=== PATIENT | male | born 1945 | race Asian ===

== ENCOUNTER → 2017-03-02 | Outpatient (CLI) | payer MEDICARE, BC | LOC: RAD 13:49 | PROVIDERS: ATTEND Family Medicine | DX: G45.9 Transient cerebral ischemic attack, unspecified (principal) | CPT/HCPCS: 70450 ==

== ENCOUNTER 2017-03-09 14:18 | Inpatient (IN) | payer MEDICARE, BC ==
[2017-03-09] MEDS ORDERED: ACETAMINOPHEN 325 MG TABLET PO PRN (14:49)
[2017-03-09] MEDS ORDERED: DEXTROSE 40% GEL 15 GM TUBE PO PRN ×2 (15:23)
[2017-03-09] MEDS ORDERED: DEXTROSE 50%-WATER 25 GM/50 ML DISP.SYRIN IV PRN ×2 (15:23)
[2017-03-09] MEDS ORDERED: ONDANSETRON HCL INJ/PF 4 MG/2 ML SDV IV PRN (15:23)
[2017-03-09] MEDS ORDERED: DICYCLOMINE HCL 10 MG CAPSULE PO PRN (15:23)
[2017-03-09] MEDS ORDERED: GLUCAGON,HUMAN RECOMB 1 MG INJ IM PRN (15:23)
[2017-03-09] MEDS ORDERED: INSULIN LISPRO 100 UNIT/ML 3 ML VIAL SUBCUT PRN (15:23)
[2017-03-09 15:58] LABS: ABSOLUTE EOSINOPHILS # (AUTO) 0.2 10^3/uL (0.0-0.6); ABSOLUTE LYMPHOCYTES (AUTO) 1.9 10^3/uL (0.5-4.7); ABSOLUTE MONOCYTES (AUTO) 0.6 10^3/uL (0.1-1.4); ABSOLUTE NEUT (AUTO) 4.4 10^3/uL (1.7-8.2); BASOPHILS % (AUTO) 0.6 % (0-2); EOSINOPHILS % (AUTO) 2.4 % (0-6); HEMATOCRIT 45.1 % (37.9-51.0); HEMOGLOBIN 15.4 g/dL (13.5-17.0); HGB HCT DIFFERENCE 1.1; LYMPHOCYTES % (AUTO) 26.2 % (13-45); MEAN CORPUSCULAR HEMOGLOBIN 30.7 pg (27.0-33.4); MEAN CORPUSCULAR HGB CONC 34.2 g/dL (32.0-36.0); MEAN CORPUSCULAR VOLUME 90 fl (80-97); MONOCYTES % (AUTO) 8.4 % (3-13); RED BLOOD COUNT 5.03 10^6/uL (4.35-5.55); RED CELL DISTRIBUTION WIDTH 13.1 % (11.5-14.0); SEGMENTED NEUTROPHILS % (AUTO) 62.4 % (42-78); WHITE BLOOD COUNT 7.1 10^3/uL (4.0-10.5)
[2017-03-09] MEDS: NORMAL SALINE 1000 ML 1,000 ML IV PRN (16:22)
[2017-03-09 16:30] LABS: ALANINE AMINOTRANSFERASE 17 U/L (21-72); ALBUMIN 4.1 g/dL (3.5-5.0); ALKALINE PHOSPHATASE 75 U/L (38-126); ANION GAP 15 (5-19); ASPARTATE AMINO TRANSFERASE 49 U/L (17-59); BILIRUBIN,TOTAL 0.6 mg/dL (0.2-1.3); BLOOD UREA NITROGEN 21 mg/dL (7-20); CALCIUM 9.5 mg/dL (8.4-10.2); CARBON DIOXIDE 28 mmol/L (22-30); CHLORIDE 102 mmol/L (98-107); CREATINE KINASE 32 U/L (55-170); CREATININE RESULT 0.77 mg/dL (0.52-1.25); GLUCOSE 100 mg/dL (75-110); POTASSIUM 4.5 mmol/L (3.6-5.0); SODIUM 145.2 mmol/L (137-145); TOTAL PROTEIN 6.7 g/dL (6.3-8.2)
[2017-03-09 16:34] LABS: BILIRUBIN,DIRECT 0.2 mg/dL (0.0-0.4)
--- NOTE | 2017-03-09 16:38 | PDOC H&P ---
History of Present Illness Admission Date/PCP: 03/09/17 14:18 TAVARES FAROOQ MD Patient complains of: Nausea, abdominal pain, dizziness and dehydration History of Present Illness: ARTURO ROUSSEAU is a 71 year old male presents from Dr. Frey, cardiology, with complaints of nausea, abdominal pain, dizziness and dehydration. Patient states his blood sugars have been high and low, he thinks contributed to his dehydration. States he is a type II diabetic who has had recent problems with hyperglycemia. He states he's had nausea and abdominal pain for the last 2 weeks. He has been drinking but not eating well. He states he's had a 40 pound weight loss over the last year which is unintentional. He denies any chest pain, dyspnea or shortness of breath. States he did fall over a week ago striking his head, he has CT of the head done at that time but continues to have some dizziness. He states most of his abdominal pain is in the epigastric area. He denies any change in bowels, any diarrhea or constipation. He denies any vomiting. He states he also feels weak and extremely dry in the mouth.. Past Medical History Cardiac Medical History: Reports: Hypertension Denies: Coronary Artery Disease, Myocardial Infarction Pulmonary Medical History: Reports: Chronic Obstructive Pulmonary Disease (COPD) Denies: Asthma, Bronchitis, Pneumonia EENT Medical History: Reports: None Neurological Medical History: Reports: None Denies: Seizures Endocrine Medical History: Reports: Diabetes Mellitus Type 2 Renal/ Medical History: Reports: None Malignancy Medical History: Reports: None GI Medical History: Reports: None Musculoskeltal Medical History: Reports: Arthritis, Other - chronic back and neck pain Skin Medical History: Reports: None Psychiatric Medical History: Reports: None Hematology: Reports: None Denies: Anemia Infectious Medical History: Reports: None Past Surgical History Past Surgical History: Reports: Other - lumbar spine and cervical spine Social History Information Source: Patient Lives with: Spouse/Significant other Smoking Status: Never Smoker Frequency of Alcohol Use: Occasional Hx Recreational Drug Use: No Hx Prescription Drug Abuse: No - Advance Directive Resuscitation Status: Full Code Surrogate healthcare decision maker:: Family History Family History: DM, Hypertension Parental Family History Reviewed: Yes Children Family History Reviewed: Yes Sibling(s) Family History Reviewed.: Yes Medication/Allergy Allergies/Adverse Reactions: No Known Allergies Allergy (Verified 08/16/14 11:38) Review of Systems Constitutional: PRESENT: anorexia, weakness, weight loss Eyes: ABSENT: visual disturbances Ears: ABSENT: hearing changes Cardiovascular: ABSENT: chest pain, dyspnea on exertion, edema, orthropnea, palpitations Respiratory: ABSENT: cough, hemoptysis Gastrointestinal: PRESENT: abdominal pain, nausea Genitourinary: ABSENT: dysuria, hematuria Musculoskeletal: ABSENT: joint swelling Integumentary: ABSENT: rash, wounds Neurological: ABSENT: abnormal gait, abnormal speech, confusion, dizziness, focal weakness, syncope Psychiatric: ABSENT: anxiety, depression, homidical ideation, suicidal ideation Endocrine: ABSENT: cold intolerance, heat intolerance, polydipsia, polyuria Hematologic/Lymphatic: ABSENT: easy bleeding, easy bruising Physical Exam Vital Signs: Temp Pulse Resp BP Pulse Ox 67 03/09/17 14:55 Intake & Output 03/08/17 03/09/17 03/10/17 06:59 06:59 06:59 Weight 50.6 kg General appearance: PRESENT: no acute distress, well-developed, well-nourished Head exam: PRESENT: atraumatic, normocephalic Eye exam: PRESENT: conjunctiva pink, EOMI, PERRLA. ABSENT: scleral icterus Ear exam: PRESENT: normal external ear exam Mouth exam: PRESENT: moist, tongue midline Neck exam: ABSENT: carotid bruit, JVD, lymphadenopathy, thyromegaly Respiratory exam: PRESENT: clear to auscultation kristin. ABSENT: rales, rhonchi, wheezes Cardiovascular exam: PRESENT: RRR. ABSENT: diastolic murmur, rubs, systolic murmur Vascular exam: PRESENT: normal capillary refill GI/Abdominal exam: PRESENT: normal bowel sounds, soft, other - mild epigastric tenderness to palpation. ABSENT: distended, guarding, mass, organolmegaly, rebound, tenderness Rectal exam: PRESENT: deferred Extremities exam: PRESENT: full ROM. ABSENT: calf tenderness, clubbing, pedal edema Musculoskeletal exam: PRESENT: ambulatory Neurological exam: PRESENT: alert, awake, oriented to person, oriented to place , oriented to time, oriented to situation, CN II-XII grossly intact. ABSENT: motor sensory deficit Psychiatric exam: PRESENT: appropriate affect, normal mood. ABSENT: homicidal ideation, suicidal ideation Skin exam: PRESENT: dry, intact, warm. ABSENT: cyanosis, rash Results Laboratory Results: 03/09/17 15:50 03/09/17 15:50 WBC 7.1 RBC 5.03 Hgb 15.4 Hct 45.1 MCV 90 MCH 30.7 MCHC 34.2 RDW 13.1 Plt Count 244 Seg Neutrophils % 62.4 Lymphocytes % 26.2 Monocytes % 8.4 Eosinophils % 2.4 Basophils % 0.6 Absolute Neutrophils 4.4 Absolute Lymphocytes 1.9 Absolute Monocytes 0.6 Absolute Eosinophils 0.2 Absolute Basophils 0.0 Assessment & Plan - Diagnosis (1) Abdominal pain Qualifiers: Abdominal location: epigastric Qualified Code(s): R10.13 - Epigastric pain Is this a current diagnosis for this admission?: YesPlan: IV Pepcid and Bentyl when necessary. (2) Nausea Is this a current diagnosis for this admission?: YesPlan: We'll give when necessary Zofran. Will hydrate with IV fluids and clear liquids initially until nausea has resolved. (3) Dizziness Is this a current diagnosis for this admission?: YesPlan: Patient had negative CT of the head after falling last week Dr. Farooq as is for MRI of the head patient does have titanium implant in his spine. (4) Essential hypertension Is this a current diagnosis for this admission?: YesPlan: Continue patient's home medications is presently normotensive. (5) HLD (hyperlipidemia) Is this a current diagnosis for this admission?: YesPlan: Continue statin. (6) Spinal stenosis Qualifiers: Spinal region: lumbosacral Qualified Code(s): M48.07 - Spinal stenosis, lumbosacral region Is this a current diagnosis for this admission?: YesPlan: Continue home medications. - Time Time Spent: 50 to 70 Minutes Critical Time spent with patient: 25-34 minutes Medications reviewed and adjusted accordingly: Yes
[2017-03-09] MEDS ORDERED: PANTOPRAZOLE SODIUM 40 MG VIAL IV SCH (22:00)
--- NOTE | 2017-03-09 22:22 | EKG REPORT ---
SEVERITY:- ABNORMAL ECG - SINUS RHYTHM MULTIPLE VENTRICULAR PREMATURE COMPLEXES : Confirmed by: Iva Frey 09-Mar-2017 22:21:29
[2017-03-09] MEDS: HEPARIN SOD (PORCINE) 5,000 UNIT/ML 1 ML SYRINGE SUBCUT SCH (23:46)
[2017-03-10] MEDS: NORMAL SALINE 1000 ML 1,000 ML IV PRN ×3 (00:10→08:58)
[2017-03-10 00:51] LABS: APPEARANCE,URINE CLEAR; BILIRUBIN,URINE NEGATIVE (NEGATIVE); GLUCOSE, URINE NEGATIVE (NEGATIVE); KETONES,URINE NEGATIVE (NEGATIVE); LEUKOCYTE ESTERASE,URINE NEGATIVE (NEGATIVE); NITRITE,URINE NEGATIVE (NEGATIVE); PROTEIN,URINE NEGATIVE (NEGATIVE); URINE SPECIFIC GRAVITY 1.012; UROBILINOGEN,URINE NEGATIVE mg/dL (<2.0)
[2017-03-10] MEDS ORDERED: HYDROCODONE/ACETAMINOPHEN 7.5-325 MG TABLET PO PRN ×2 (01:25→07:50)
[2017-03-10] MEDS ORDERED: ALPRAZOLAM 0.5 MG TABLET PO ONE (02:15)
[2017-03-10] MEDS: HEPARIN SOD (PORCINE) 5,000 UNIT/ML 1 ML SYRINGE SUBCUT SCH ×2 (05:18→14:08)
[2017-03-10] MEDS ORDERED: GLIPIZIDE XL 2.5 MG TAB.ER.24 PO SCH ×2 (08:00→10:00)
--- NOTE | 2017-03-10 08:39 | PDOC PROGRESS REPORT ---
Subjective Progress Note for:: 03/10/17 Subjective:: Patient was admitted yesterday by the hospitalist for the possible dehydration and patient was not feeling well when the patient went to see the cardiology office. Patient's sodium was 145 but other than that all the other blood work was stable.Patient was started on IV fluid Patient's refused for the MRI Patient was complaining some abdominal pain and radiating to the back and also complained of some sore throat Patient's mentions that his blood sugar was running 400 range in the hospital is running between 140 range Patient's recent A1c in the office was 7.9 Physical Exam Vital Signs: Temp Pulse Resp BP Pulse Ox 97.8 F 65 20 120/67 96 03/09/17 22:00 03/10/17 02:00 03/09/17 22:00 03/09/17 22:00 03/09/17 22:00 Intake & Output 03/09/17 03/10/17 03/11/17 06:59 06:59 06:59 Intake Total 1885 Balance 1885 Weight 54.5 kg General appearance: PRESENT: no acute distress, well-developed, well-nourished Head exam: PRESENT: atraumatic, normocephalic Eye exam: PRESENT: conjunctiva pink, EOMI, PERRLA. ABSENT: scleral icterus Ear exam: PRESENT: normal external ear exam Mouth exam: PRESENT: moist, tongue midline Neck exam: PRESENT: full ROM. ABSENT: carotid bruit, JVD, lymphadenopathy, thyromegaly Respiratory exam: PRESENT: clear to auscultation kristin Cardiovascular exam: PRESENT: RRR. ABSENT: diastolic murmur, rubs, systolic murmur Pulses: PRESENT: normal dorsalis pedis pul, +2 pedal pulses bilateral Vascular exam: PRESENT: normal capillary refill GI/Abdominal exam: PRESENT: normal bowel sounds, soft. ABSENT: distended, guarding, mass, organolmegaly, rebound, tenderness Rectal exam: PRESENT: deferred Neurological exam: PRESENT: alert, awake, oriented to person, oriented to place , oriented to time, oriented to situation, CN II-XII grossly intact. ABSENT: motor sensory deficit Psychiatric exam: PRESENT: appropriate affect, normal mood. ABSENT: homicidal ideation, suicidal ideation Skin exam: PRESENT: dry, intact, warm. ABSENT: cyanosis, rash Results Laboratory Results: 03/09/17 15:50 03/09/17 15:50 03/09/17 03/09/17 03/09/17 15:50 15:50 23:35 WBC 7.1 RBC 5.03 Hgb 15.4 Hct 45.1 MCV 90 MCH 30.7 MCHC 34.2 RDW 13.1 Plt Count 244 Seg Neutrophils % 62.4 Lymphocytes % 26.2 Monocytes % 8.4 Eosinophils % 2.4 Basophils % 0.6 Absolute Neutrophils 4.4 Absolute Lymphocytes 1.9 Absolute Monocytes 0.6 Absolute Eosinophils 0.2 Absolute Basophils 0.0 Sodium 145.2 H Potassium 4.5 Chloride 102 Carbon Dioxide 28 Anion Gap 15 BUN 21 H Creatinine 0.77 Est GFR ( Amer) > 60 Est GFR (Non-Af Amer) > 60 Glucose 100 Calcium 9.5 Total Bilirubin 0.6 AST 49 ALT 17 L Alkaline Phosphatase 75 Total Protein 6.7 Albumin 4.1 Urine Color YELLOW Urine Appearance CLEAR Urine pH 7.0 Ur Specific [place] 1.012 Urine Protein NEGATIVE Urine Glucose (UA) NEGATIVE Urine Ketones NEGATIVE Urine Blood NEGATIVE Urine Nitrite NEGATIVE Ur Leukocyte Esterase NEGATIVE Urine WBC (Auto) 0 03/09/17 03/09/17 15:50 15:50 Creatine Kinase 32 L Troponin I < 0.012 Assessment & Plan - Diagnosis (1) Abdominal pain Qualifiers: Abdominal location: epigastric Qualified Code(s): R10.13 - Epigastric pain Is this a current diagnosis for this admission?: YesPlan: With this history of the chronic smoking will get the CT abdomen and pelvis with IV and p.o. contrast to rule out any pancreatic etiologyPatient's up-to- date with the endoscopy and colonoscopy within the last 1 year (2) Dizziness Is this a current diagnosis for this admission?: YesPlan: Patient with significant history of the stroke and carotid disease patient's continues to aspirin and patient was in the Plavix but patient stop itPatient average recent CT head was negative for any acute finding was done just the last week and patient is refused for MRI (3) Essential hypertension Is this a current diagnosis for this admission?: YesPlan: Currently stable continues to current medications (4) HLD (hyperlipidemia) Is this a current diagnosis for this admission?: YesPlan: Continues to currently on statin (5) Spinal stenosis Qualifiers: Spinal region: lumbosacral Qualified Code(s): M48.07 - Spinal stenosis, lumbosacral region Is this a current diagnosis for this admission?: YesPlan: Patient have a surgery on the spine and currently follow the neurosurgery Currently on a pain medications for the pain management (6) Type 2 diabetes mellitus Qualifiers: Diabetes mellitus complication status: with unspecified complications Is this a current diagnosis for this admission?: YesPlan: Patient's recent A1c was 7.9 patient was recently put on the glipizide and Metformin and also put on the insulin but patient does not want to take the insulin in the hospital the patient's blood sugar is running always between 140 range I am not sure the patient's machine is reading properly discussed with the nursing staff to check the machine and dietary consult today (7) Chronic obstructive pulmonary disease Qualifiers: Emphysema type: unspecified Is this a current diagnosis for this admission?: YesPlan: Patient's continues to smoke continues to current inhaler - Time Time Spent with patient: 15-24 minutes Medications reviewed and adjusted accordingly: Yes Anticipated discharge: Home Within: Other - Inpatient Certification Medical Necessity: Need Close Monitoring Due to Risk of Patient Decompensation 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
[2017-03-10] MEDS: METFORMIN HCL 500 MG TABLET PO SCH ×2 (08:42→16:21)
[2017-03-10] MEDS ORDERED: FAMOTIDINE INJ/PF 20 MG/2 ML SDV IV SCH (10:00)
[2017-03-10] MEDS ORDERED: AMLODIPINE BESYLATE 5 MG TABLET PO SCH ×2 (10:00)
[2017-03-10] MEDS ORDERED: ALPRAZOLAM 0.5 MG TABLET PO SCH ×3 (10:00→22:00)
[2017-03-10] MEDS ORDERED: METFORMIN HCL 500 MG TABLET PO SCH (10:00)
[2017-03-10 12:04] VITALS: BP 135/55
--- NOTE | 2017-03-10 17:46 | PDOC DISCHARGE SUMMARY ---
General - Admit/Disc Date/PCP Admission Date/Primary Care Provider: 03/09/17 14:18 TAVARES FAROOQ MD Discharge Date: 03/10/17 - Discharge Diagnosis (1) Abdominal pain Is this a current diagnosis for this admission?: YesSummary: All resolved most likely a gastritis with the CT scan of the abdomen and pelvis is all normal (2) Dizziness Is this a current diagnosis for this admission?: YesSummary: Ongoing chronic problems currently stable patient's recent CT head was negative no sign of any acute neurological events patient's refused for MRI (3) Essential hypertension Is this a current diagnosis for this admission?: YesSummary: Currently stable (4) HLD (hyperlipidemia) Is this a current diagnosis for this admission?: YesSummary: Continues to current statin (5) Spinal stenosis Is this a current diagnosis for this admission?: YesSummary: Patients follow with the neurosurgery and the pain management (6) Type 2 diabetes mellitus Is this a current diagnosis for this admission?: YesSummary: Currently stable's we hold the metformin due to the IV contrast patient's already giving the insulin at home (7) Chronic obstructive pulmonary disease Is this a current diagnosis for this admission?: YesSummary: Discuss about the smoking suggestions - Additional Information Resuscitation Status: Full Code Home Medications: Alprazolam [Xanax 0.5 mg Tablet] 0.5 mg PO DAILY 03/09/17 Amlodipine Besylate [Norvasc 5 mg Tablet] 5 mg PO BID 03/09/17 Glipizide [Glipizide Xl] 2.5 mg PO DAILY 03/09/17 Hydrocodone/Acetaminophen [[place] 7.5-325 Tablet] 1 tab PO QIDP PRN 03/09/17 Metformin HCl [Glucophage] 500 mg PO BID 03/09/17 History of Present Illness History of Present Illness: ARTURO ROUSSEAU is a 71 year old male Is a 71-year-old man was admitted by the hospitalist because of the patient's was complaining of some dehydration's and not feeling well and the patient's was concern about some abdominal issuesAnd also elevated blood sugar Hospital Course Hospital Course: This is a 71-year-old man admitting in the hospital because of the possible dehydration's abdominal pain not feeling well and patient was started on IV fluid and all the blood work was done is all stable patient had a CT abdomen and pelvis with IV and p.o. contrast was done was also stable. Patient's blood sugar was running 1 4150 range in the hospitals. Patient seen by the dietitian about the diet to the changes.Patient otherwise doing well and the patient's initially we order the MRI of the head because patient was complaining some dizzy feeling but patient's refused to do that patient have a recently a CT head was done was also negative..Patient is p.o. 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 ABSENT: scleral icterus Ear exam: PRESENT: normal external ear exam Mouth exam: PRESENT: moist, tongue midline Neck exam: PRESENT: full ROM. ABSENT: carotid bruit, JVD, lymphadenopathy, thyromegaly Respiratory exam: PRESENT: clear to auscultation kristin Cardiovascular exam: PRESENT: RRR. ABSENT: diastolic murmur, rubs, systolic murmur Pulses: PRESENT: normal dorsalis pedis pul, +2 pedal pulses bilateral Vascular exam: PRESENT: normal capillary refill GI/Abdominal exam: PRESENT: normal bowel sounds, soft. ABSENT: distended, guarding, mass, organolmegaly, rebound, tenderness Rectal exam: PRESENT: deferred Neurological exam: PRESENT: alert, awake, oriented to person, oriented to place , oriented to time, oriented to situation, CN II-XII grossly intact. ABSENT: motor sensory deficit Psychiatric exam: PRESENT: appropriate affect, normal mood. ABSENT: homicidal ideation, suicidal ideation Skin exam: PRESENT: dry, intact, warm. ABSENT: cyanosis, rash Results Laboratory Results: 03/09/17 15:50 03/09/17 15:50 03/09/17 23:35 Urine Color YELLOW Urine Appearance CLEAR Urine pH 7.0 Ur Specific [place] 1.012 Urine Protein NEGATIVE Urine Glucose (UA) NEGATIVE Urine Ketones NEGATIVE Urine Blood NEGATIVE Urine Nitrite NEGATIVE Ur Leukocyte Esterase NEGATIVE Urine WBC (Auto) 0 03/09/17 03/09/17 15:50 15:50 Creatine Kinase 32 L Troponin I < 0.012 Impressions: Abdomen/Pelvis CT 03/10/17 00:00 IMPRESSION: 1. No acute abnormality identified on this contrast study of the abdomen pelvis. 2. Hepatic steatosis. No focal liver lesions. 3. 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 No abdominal aortic aneurysm identified. Plan Time Spent: Less than 30 Minutes - Patient expressed strongly to go home's and patients feel better and the patient's following office in 1-2 weeks discuss about the smoking suggestions and discuss about the continues to current medications except hold the metformin until the IV contrast is over
== END 2017-03-10 18:00 | disposition left against medical advice (07) | DRG 641 ==
LOC: 4S 14:18 → UNDOADMOB 14:18 → OBSVTOIN 15:26 → 4S 15:26 → UNDOADMOB 03-10 17:05 → 4S 03-10 17:05 → UNDODISOB 03-10 18:00
PROVIDERS: ADMIT Family Medicine; ATTEND Family Medicine
DX: E86.0 Dehydration (principal); Z68.1 Body mass index [BMI] 19.9 or less, adult; K29.70 Gastritis, unspecified, without bleeding; E11.65 Type 2 diabetes mellitus with hyperglycemia; I10 Essential (primary) hypertension; J44.9 Chronic obstructive pulmonary disease, unspecified; R63.4 Abnormal weight loss; R63.0 Anorexia; M19.90 Unspecified osteoarthritis, unspecified site; G89.29 Other chronic pain; M54.2 Cervicalgia; F17.200 Nicotine dependence, unspecified, uncomplicated; M54.9 Dorsalgia, unspecified; E78.5 Hyperlipidemia, unspecified; M48.07 Spinal stenosis, lumbosacral region; Z86.73 Personal history of transient ischemic attack (TIA), and cerebral infarction without residual deficits; Z79.84 Long term (current) use of oral hypoglycemic drugs
CPT/HCPCS: 36415; 74177; 80053; 81001; 82550; 82962; 84484; 85025; 93005; 93010; J3490; J7030; S0028

== ENCOUNTER → 2017-04-05 | Outpatient (CLI) | payer MEDICARE, BC | LOC: OD 13:26 | PROVIDERS: ATTEND Family Medicine | DX: M25.552 Pain in left hip (principal); M25.551 Pain in right hip | CPT/HCPCS: 73522 ==

== ENCOUNTER 2017-04-09 11:05 | Day surgery (SDC) | payer MEDICARE, BC ==
[~2017-04-09 11:05] MED LIST: DIPHENHYDRAMINE HCL 50 MG/ML VIAL ONE; EPINEPHRINE INJ 1 MG/10 ML DISP.SYRIN ONE; FENTANYL CITRATE INJ/PF 100 MCG/2 ML AMPUL ONE; FLUMAZENIL INJ 0.5 MG/5 ML VIAL IV ONE; MIDAZOLAM 2 MG/2 ML INJ ONE; NALOXONE HCL INJ/PF 0.4 MG/1 ML SDV ONE; ONDANSETRON HCL INJ/PF 4 MG/2 ML SDV ONE
--- NOTE | 2017-04-09 11:59 | Operative Report ---
Operative Report DATE OF SURGERY: 04/09/17 Operative Report: The risks benefits and alternatives of the procedure explained to the patient in detail and informed consent is obtained. A GIF Olympus video scope was inserted into the patient's mouth and hypopharynx ,the esophagus is identified intubated and insufflated, the scope was then advanced through the esophagus stomach and duodenum, retroflexion maneuver is done ,the esophagus stomach and first and second portions of the duodenum examined PREOPERATIVE DIAGNOSIS: Nausea vomiting POSTOPERATIVE DIAGNOSIS: Mild gastritis status post biopsy for Helicobacter pylori OPERATION: EGD with biopsy SURGEON: JUAN HENRY ANESTHESIA: Moderate Sedation - 2 mg of Versed, conscious sedation monitoring time 30 minutes. TISSUE REMOVED OR ALTERED: Gastric mucosal specimens obtained COMPLICATIONS: None. ESTIMATED BLOOD LOSS: None. PROCEDURE: Patient tolerated the procedure well. No immediate postprocedure complications are noted. Patient discharged in good condition. Discharge date 04/09/2017. Discharge diet: Regular. Discharge activity: Regular. 2-3 week follow-up to discuss findings. We will wait on biopsies. Patient is instructed to call the office or proceed to the emergency room should there be any further problems or questions.
[2017-04-09 12:50] VITALS: BP 121/58
== END 2017-04-09 13:05 | disposition home or self-care (01) ==
LOC: END 11:05
PROVIDERS: ATTEND Internal Medicine Gastroenterology
PROC: 0DB68ZX Excision of Stomach, Via Natural or Artificial Opening Endoscopic, Diagnostic (ICD-10-PCS; principal; 2017-04-09 11:00)
DX: K29.70 Gastritis, unspecified, without bleeding (principal); K21.9 Gastro-esophageal reflux disease without esophagitis; I10 Essential (primary) hypertension; E11.9 Type 2 diabetes mellitus without complications; J44.9 Chronic obstructive pulmonary disease, unspecified; F17.210 Nicotine dependence, cigarettes, uncomplicated; Z79.899 Other long term (current) drug therapy; Z79.84 Long term (current) use of oral hypoglycemic drugs; Z86.73 Personal history of transient ischemic attack (TIA), and cerebral infarction without residual deficits
CPT/HCPCS: 43239; 82962; 88305 ×2; J2250; J3010; J0171; J1200; J2310; J2405; J3490

== ENCOUNTER → 2017-07-14 | Outpatient (CLI) | payer MEDICARE, BC ==
--- NOTE | 2017-07-14 16:11 | RADIOLOGY REPORT (SQ) ---
EXAM DESCRIPTION: CHEST PA/LATERAL COMPLETED DATE/TIME: 07/14/2017 3:57 pm REASON FOR STUDY: CHEST PAIN, UNSPECIFIED COMPARISON: 01/17/2016 EXAM PARAMETERS: NUMBER OF VIEWS: two views TECHNIQUE: Digital Frontal and Lateral radiographic views of the chest acquired. RADIATION DOSE: NA LIMITATIONS: none FINDINGS: LUNGS AND PLEURA: Lungs are hyperexpanded. No infiltrate or effusion is present. No mass is seen. MEDIASTINUM AND HILAR STRUCTURES: No masses or contour abnormalities. HEART AND VASCULAR STRUCTURES: Heart normal size. No evidence for failure. BONES: No acute findings. Kyphoplasty changes at T12. Old L1 compression changes. HARDWARE: None in the chest. OTHER: No other significant finding. IMPRESSION: Mild chronic lung changes with no acute cardiopulmonary disease. TECHNICAL DOCUMENTATION: JOB ID: [id number] [employer]- All Rights Reserved
[2017-07-14 16:35] LABS: ABSOLUTE EOSINOPHILS # (AUTO) 0.1 10^3/uL (0.0-0.6); ABSOLUTE LYMPHOCYTES (AUTO) 1.5 10^3/uL (0.5-4.7); ABSOLUTE MONOCYTES (AUTO) 0.8 10^3/uL (0.1-1.4); ABSOLUTE NEUT (AUTO) 7.7 10^3/uL (1.7-8.2); BASOPHILS % (AUTO) 0.2 % (0-2); EOSINOPHILS % (AUTO) 0.6 % (0-6); HEMATOCRIT 49.2 % (37.9-51.0); HEMOGLOBIN 16.6 g/dL (13.5-17.0); HGB HCT DIFFERENCE 0.6; LYMPHOCYTES % (AUTO) 14.4 % (13-45); MEAN CORPUSCULAR HEMOGLOBIN 30.5 pg (27.0-33.4); MEAN CORPUSCULAR HGB CONC 33.8 g/dL (32.0-36.0); MEAN CORPUSCULAR VOLUME 90 fl (80-97); MONOCYTES % (AUTO) 8.4 % (3-13); RED BLOOD COUNT 5.46 10^6/uL (4.35-5.55); RED CELL DISTRIBUTION WIDTH 14.8 % (11.5-14.0); SEGMENTED NEUTROPHILS % (AUTO) 76.4 % (42-78); WHITE BLOOD COUNT 10.1 10^3/uL (4.0-10.5)
[2017-07-14 16:56] LABS: ANION GAP 13 (5-19); BLOOD UREA NITROGEN 15 mg/dL (7-20); CALCIUM 9.9 mg/dL (8.4-10.2); CARBON DIOXIDE 28 mmol/L (22-30); CHLORIDE 96 mmol/L (98-107); CREATININE RESULT 0.71 mg/dL (0.52-1.25); GLUCOSE 94 mg/dL (75-110); POTASSIUM 4.9 mmol/L (3.6-5.0); SODIUM 136.9 mmol/L (137-145)
[2017-07-14 17:04] LABS: CREATINE KINASE MB 1.09 ng/mL (<4.55)
[2017-07-14 17:15] LABS: TROPONIN I < 0.012 ng/mL
== END ==
LOC: OD 15:12
PROVIDERS: ATTEND Family Medicine
DX: R07.9 Chest pain, unspecified (principal)
CPT/HCPCS: 36415; 71020; 80048; 82553; 84484; 85025

== ENCOUNTER → 2017-10-15 | Outpatient (CLI) | payer MEDICARE, BC ==
--- NOTE | 2017-10-15 15:38 | RADIOLOGY REPORT (SQ) ---
EXAM DESCRIPTION: MRI THORACIC SPINE WITHOUT COMPLETED DATE/TIME: 10/15/2017 3:16 pm REASON FOR STUDY: THORACIC COMPRESSION FRACTURE M54.6 PAIN IN THORACIC SPINE COMPARISON: None. TECHNIQUE: Sagittal and Axial imaging includes T1, T2, STIR and gradient echo sequences. LIMITATIONS: None. FINDINGS: LOCALIZER: No worrisome findings. ALIGNMENT: Normal. VERTEBRAE: Old compression fracture of T12 with kyphoplasty cement. Remainder the thoracic vertebrae are intact. BONE MARROW: Normal. No marrow replacement or reactive changes. HARDWARE: None in the spine. CORD: Normal in size and signal intensity. SOFT TISSUES: No soft tissue masses. THORACIC DISCS T1-T12: Minimal disc bulges at T7-T8, T8-T9, and T9-T10. No significant spinal stenos is or exit foraminal stenosis. LOWER CERVICAL: Incompletely imaged. No significant spinal stenosis or exit foraminal stenosis. UPPER LUMBAR: Incompletely imaged. No significant spinal stenosis or exit foraminal stenosis. OTHER: No other significant finding. IMPRESSION: 1. OLD COMPRESSION FRACTURE OF T12 WITH KYPHOPLASTY CEMENT. THE REMAINDER OF THE THORACIC VERTEBRAE ARE INTACT. 2. MINIMAL DEGENERATIVE DISC DISEASE. NO STENOSIS OR IMPINGEMENT. TECHNICAL DOCUMENTATION: JOB ID: [id number] [employer]- All Rights Reserved
== END ==
LOC: RAD 14:19
PROVIDERS: ATTEND Pain Medicine Interventional Pain Medicine
DX: M54.6 Pain in thoracic spine (principal)
CPT/HCPCS: 72146

== ENCOUNTER → 2017-12-08 | Outpatient (CLI) | payer MEDICARE, BC ==
--- NOTE | 2017-12-08 16:38 | RADIOLOGY REPORT (SQ) ---
EXAM DESCRIPTION: RIBS BILATERAL W/O PA CXR COMPLETED DATE/TIME: 12/08/2017 4:22 pm REASON FOR STUDY: R07.1 R07.1 CHEST PAIN ON BREATHING COMPARISON: None. NUMBER OF VIEWS: Two views of right ribs. Two views of left ribs. TECHNIQUE: Images acquired of the right and left ribs in the area of focal concern. LIMITATIONS: None. FINDINGS: RIBS: No acute displaced fracture. No worrisome bone lesions. LUNGS: Limited exam. No obvious pneumothorax. No pleural effusion. OTHER: Changes of cervicothorac ic fusion with rods and screws in place. Status post vertebroplasty T12. IMPRESSION: NO ACUTE DISPLACED RIB FRACTURE. TECHNICAL DOCUMENTATION: JOB ID: [id number] 2010 [employer]- All Rights Reserved
--- NOTE | 2017-12-08 16:45 | RADIOLOGY REPORT (SQ) ---
EXAM DESCRIPTION: CHEST PA/LAT COMPLETED DATE/TIME: 12/08/2017 4:22 pm REASON FOR STUDY: R07.1 CHEST PAIN ON BREATHING COMPARISON: 01/17/2016. EXAM PARAMETERS: NUMBER OF VIEWS: two views TECHNIQUE: Digital Frontal and Lateral radiographic views of the chest acquired. RADIATION DOSE: NA LIMITATIONS: none FINDINGS: LUNGS AND PLEURA: No infiltrate, masses or pneumothorax. No pleural effusion. MEDIASTINUM AND HILAR STRUCTURES: No masses or contour abnormalities. HEART AND VASCULAR STRUCTURES: Heart normal size. No evidence for failure. BONES: No acute findings. HARDWARE: Changes of cervicothoracic fusion OTHER: Findings consistent with previous vertebroplasty at T12. Old compression deformity of L1. IMPRESSION: No acute disease. No significant change. TECHNICAL DOCUMENTATION: JOB ID: [id number] 2010 [employer]- All Rights Reserved
== END ==
LOC: RAD 15:49
PROVIDERS: ATTEND Pain Medicine Interventional Pain Medicine
DX: R07.1 Chest pain on breathing (principal)
CPT/HCPCS: 71046; 71110

== ENCOUNTER → 2017-12-21 | Outpatient (CLI) | payer MEDICARE, BC ==
--- NOTE | 2017-12-21 15:17 | RADIOLOGY REPORT (SQ) ---
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 Images stored on PACS. LIMITATIONS: None. FINDINGS: RIGHT CAROTID CCA Velocities: Within normal limits. ICA Velocities Peak systolic 0.46 m/s. End diastolic 0.16 m/s. Proximal ICA/CCA peak systolic ratio 1.3. Spectra normal. Calcific and noncalcific plaque is present at the right carotid bifurcation. Veloci ties just distal to the shadowing plaque suggest against flow significant proximal ICA stenosis LEFT CAROTID CCA Velocities: Within normal limits. ICA Velocities Peak systolic 0.99 m/s. End diastolic 0.30 m/s. Proximal ICA/CCA peak systolic ratio 1.2. Spectra normal. Calcific and noncalcific plaque is present at the left carotid bifurcation. Velocit ies just distal to the shadowing plaque suggest against flow significant proximal ICA stenosis. VERTEBRAL ARTERIES: Antegrade flow. Normal waveforms. SUBCLAVIAN ARTERIES: Not examined OTHER: No other significant finding. IMPRESSION: CALCIFIC SHADOWING PLAQUE AT BOTH CAROTID BIFURCATIONS. BY VELOCITY CRITERIA, NO HEMODYNAMICALLY SIGNIFICANT PROXIMAL INTERNAL CAROTID ARTERY STENOSIS. COMMENT: Quality ID #[id number]: Velocity criteria are extrapolated from the diameter data as defined by t he Society of Radiologists in Ultrasound Consensus Conference. Radiology 2003: 229; 340-346. TECHNICAL DOCUMENTATION: JOB ID: [id number] [employer]- All Rights Reserved
--- NOTE | 2017-12-21 16:04 | RADIOLOGY REPORT (SQ) ---
EXAM DESCRIPTION: U/S THYROID/SFT TISS HD NECK COMPLETED DATE/TIME: 12/21/2017 2:48 pm REASON FOR STUDY: NONTOXIC GOITER, UNSPEC (E04.9) E04.9 NONTOXIC GOITER, UNSPECIFIED I65.21 OCCLUS ION AND STENOSIS OF RIGHT CAROTID ARTERY COMPARISON: Thyroid ultrasound 05/27/2015 TECHNIQUE: Dynamic and static bennett-scale images acquired of the thyroid gland. Selected additional c olor/power Doppler images recorded. All images stored to PACS. LIMITATIONS: None. FINDINGS: RIGHT LOBE: Normal size, 4.7 x 1.2 x 1.1 cm. Homogeneous echotexture. No cystic or solid masses. LEFT LOBE: Normal size, 5.4 x 2 x 1.7 cm. Homogeneous echotexture. No cystic or solid masses. ISTHMUS: Normal size, 3 mm in thickness. Homogeneous echotexture. No cystic or solid masses. OTHER: No other significant finding. IMPRESSION: NORMAL THYROID ULTRASOUND. TECHNICAL DOCUMENTATION: JOB ID: [id number] [employer]- All Rights Reserved
== END ==
LOC: RAD 13:13
PROVIDERS: ATTEND Family Medicine
DX: E04.9 Nontoxic goiter, unspecified (principal); I65.21 Occlusion and stenosis of right carotid artery
CPT/HCPCS: 76536; 93880

== ENCOUNTER → 2017-12-27 | Outpatient (CLI) | payer MEDICARE, BC ==
--- NOTE | 2017-12-27 11:59 | RADIOLOGY REPORT (SQ) ---
EXAM DESCRIPTION: CT HEAD WITHOUT COMPLETED DATE/TIME: 12/27/2017 11:42 am REASON FOR STUDY: HEADACHE (R51) R51 HEADACHE COMPARISON: 03/02/2017. TECHNIQUE: Axial images acquired through the brain without intravenous contrast. Images reviewed wi th bone, brain and subdural windows. Images stored on PACS. All CT scanners at this facility use dose modulation, iterative reconstruction, and/or weight based d osing when appropriate to reduce radiation dose to as low as reasonably achievable (ALARA). [facility]: Dose Right [facility]: CareDose [facility]: Dose Right [facility]: Teradose 4D [facility]: [facility] [place] [facility] RADIATION DOSE: CT Rad equipment meets quality standard of care and radiation dose reduction techniq ues were employed. CTDIvol: 49.0 mGy. DLP: 881 mGy-cm.mGy. LIMITATIONS: None. FINDINGS: VENTRICLES: Prominent. CEREBRUM: No masses. No hemorrhage. No midline shift. Areas of low density in the white matter mos t likely due to chronic micro-vascular ischemic change. No evidence for acute infarction. CEREBELLUM: No masses. No hemorrhage. No alteration of density. No evidence for acute infarction. EXTRAAXIAL SPACES: Age-related involutional change. No fluid collections. No masses. ORBITS AND GLOBE: No intra- or extraconal masses. Normal contour of globe without masses. CALVARIUM: No fracture. PARANASAL SINUSES: No fluid or mucosal thickening. SOFT TISSUES: No mass or hematoma. OTHER: No other significant finding. IMPRESSION: CHRONIC CHANGES OF ATROPHY AND MICROVASCULAR ISCHEMIA. NO ACUTE PROCESS. EVIDENCE OF ACUTE STROKE: NO. TECHNICAL DOCUMENTATION: JOB ID: [id number] Quality ID # 436: Final reports with documentation of one or more dose reduction techniques (e.g., Au tomated exposure control, adjustment of the mA and/or kV according to patient size, use of iterative reconstruction technique) 2010 [employer]- All Rights Reserved
== END ==
LOC: RAD 11:24
PROVIDERS: ATTEND Family Medicine
DX: R51 Headache (principal)
CPT/HCPCS: 70450

== ENCOUNTER 2018-01-13 13:05 | Observation (INO) | payer MEDICARE, BC ==
[2018-01-13] MEDS ORDERED: NORMAL SALINE 1000 ML 1,000 ML IV PRN (13:13)
[2018-01-13] MEDS ORDERED: ONDANSETRON HCL INJ/PF 4 MG/2 ML SDV IV PRN (13:13)
[2018-01-13] MEDS ORDERED: ACETAMINOPHEN 325 MG TABLET PO PRN (13:13)
[2018-01-13] MEDS ORDERED: GLUCAGON,HUMAN RECOMB 1 MG INJ IM PRN (13:19)
[2018-01-13] MEDS ORDERED: DEXTROSE 50%-WATER 25 GM/50 ML DISP.SYRIN IV PRN ×2 (13:19)
[2018-01-13] MEDS ORDERED: DEXTROSE 40% GEL 15 GM TUBE PO PRN ×2 (13:19)
--- NOTE | 2018-01-13 13:35 | PDOC H&P ---
History of Present Illness Admission Date/PCP: 01/13/18 13:05 TAVARES FAROOQ MD Patient complains of: Weakness/Weight loss/Chronic back pain/Nausea vomiting History of Present Illness: ARTURO ROUSSEAU is a 72 year old male This is a 72-year-old male's with a significant history of type 2 diabetes mellitus hypertension's hyperlipidemia history of the CVA in the past with ongoing depressions and a chronic back issuesHave a several workup done including the CT of the chest abdomen and pelvis last year was all stable also have a CT of the head recently was done was stable and endoscopy and colonoscopy was done last year was all stable blood work and PSA was done stableAnd a several consult visit including the pain management and seen by the ENT last yr r but patient still persistent Feeling weak and increasing the more pain and the patient not feeling well and persistent nausea and unable to eat or drink and a significant weight loss more than 20 pounds in the last 2 monthsAnd at this point decided to admit in the hospital for further evaluations while the patient unable to have a much mobility to rule out the other etiology Discussed with the pain management and agree with this continues pain medications Ongoing hernia problem seen by the surgeon and the patient's at this point does not require surgery but patients really insistent need a surgery Patient's denied any chest pain denied any shortness of the breathStill ongoing cough with ongoing smoking Patient's also ultrasound of the carotid recently done was all stable and ultrasound of the thyroid was done was all stable to According to the since last 3 days patient is unable to move from He is bed and and not feeling well and not able to eat much Past Medical History Cardiac Medical History: Denies: Coronary Artery Disease, Myocardial Infarction, Hypertension - RESOLVED AT THIS TIME Pulmonary Medical History: Reports: Chronic Obstructive Pulmonary Disease (COPD) Denies: Asthma, Bronchitis, Pneumonia Neurological Medical History: Reports: Ischemic CVA Denies: Seizures Endocrine Medical History: Reports: Diabetes Mellitus Type 2 GI Medical History: Reports: Gastroesophageal Reflux Disease Musculoskeltal Medical History: Reports: Arthritis Psychiatric Medical History: Reports: Depression Hematology: Denies: Anemia Past Surgical History Past Surgical History: Reports: Other - lumbar spine and cervical spine Social History Information Source: Patient Lives with: Family Smoking Status: Current Every Day Smoker Frequency of Alcohol Use: Occasional Hx Recreational Drug Use: No Hx Prescription Drug Abuse: No Family History Family History: Reviewed & Not Pertinent, DM, Hypertension Parental Family History Reviewed: Yes Children Family History Reviewed: Yes Sibling(s) Family History Reviewed.: Yes Medication/Allergy Home Medications: Alprazolam [Xanax 0.5 mg Tablet] 0.5 mg PO DAILY 03/09/17 Amlodipine Besylate [Norvasc 5 mg Tablet] 5 mg PO BID 03/09/17 Hydrocodone/Acetaminophen [Sky[place] 7.5-325 Tablet] 1 tab PO QIDP PRN 03/09/17 Insulin Detemir [Levemir Insulin 100 units/mL] 13 - 18 units SQ DAILY 04/08/17 Allergies/Adverse Reactions: No Known Allergies Allergy (Verified 04/08/17 14:39) Review of Systems Constitutional: PRESENT: fatigue, weakness, weight loss. ABSENT: chills, fever( s), headache(s), weight gain Eyes: ABSENT: visual disturbances Ears: ABSENT: hearing changes Cardiovascular: ABSENT: chest pain, dyspnea on exertion, edema, orthropnea, palpitations Respiratory: PRESENT: cough, dyspnea. ABSENT: hemoptysis Gastrointestinal: PRESENT: abdominal pain, bloating, nausea. ABSENT: constipation, diarrhea, hematemesis, hematochezia, vomiting Genitourinary: ABSENT: dysuria, hematuria Musculoskeletal: ABSENT: joint swelling Integumentary: ABSENT: rash, wounds Neurological: PRESENT: dizziness. ABSENT: abnormal gait, abnormal speech, confusion, focal weakness, syncope Psychiatric: ABSENT: anxiety, depression, homidical ideation, suicidal ideation Endocrine: ABSENT: cold intolerance, heat intolerance, menstrual abnormalities, polydipsia, polyuria Hematologic/Lymphatic: ABSENT: easy bleeding, easy bruising, lymphadenopathy Physical Exam General appearance: PRESENT: no acute distress, well-developed, well-nourished Head exam: PRESENT: atraumatic, normocephalic Eye exam: PRESENT: conjunctiva pink, EOMI, PERRLA. ABSENT: scleral icterus Ear exam: PRESENT: normal external ear exam Mouth exam: PRESENT: moist, tongue midline Neck exam: PRESENT: full ROM. ABSENT: carotid bruit, JVD, lymphadenopathy, thyromegaly Respiratory exam: PRESENT: clear to auscultation kristin Cardiovascular exam: PRESENT: RRR. ABSENT: diastolic murmur, rubs, systolic murmur Pulses: PRESENT: normal dorsalis pedis pul, +2 pedal pulses bilateral Vascular exam: PRESENT: normal capillary refill GI/Abdominal exam: PRESENT: normal bowel sounds, soft. ABSENT: distended, guarding, mass, organolmegaly, rebound, tenderness Rectal exam: PRESENT: deferred Extremities exam: ABSENT: pedal edema Musculoskeletal exam: PRESENT: ambulatory Neurological exam: PRESENT: alert, awake, oriented to person, oriented to place , oriented to time, oriented to situation, CN II-XII grossly intact. ABSENT: motor sensory deficit Psychiatric exam: PRESENT: appropriate affect, normal mood. ABSENT: homicidal ideation, suicidal ideation Skin exam: PRESENT: dry, intact, warm. ABSENT: cyanosis, rash Assessment & Plan - Diagnosis (1) Weight loss Is this a current diagnosis for this admission?: Yes Plan: Will admit the patient in the telemetry bed'sWrist looking the CT of the chest abdomen and pelvis to rule out other etiology Consult the psych for possible underlying significant depressions with patient is going on right now (2) Abdominal pain Qualifiers: Abdominal location: epigastric Qualified Code(s): R10.13 - Epigastric pain Is this a current diagnosis for this admission?: Yes Plan: We will get the CT abdomen pelvis with IV and p.o. contrast (3) Chronic obstructive pulmonary disease Qualifiers: Emphysema type: unspecified Is this a current diagnosis for this admission?: Yes Plan: Will continues to patients with the nebulizer treatments (4) Dizziness Is this a current diagnosis for this admission?: Yes Plan: We will get the MRI of the head (5) Essential hypertension Is this a current diagnosis for this admission?: Yes Plan: Continues to current medications (6) Nausea Is this a current diagnosis for this admission?: Yes Plan: We will consult the GI for further evaluations (7) Spinal stenosis Qualifiers: Spinal region: lumbosacral Qualified Code(s): M48.07 - Spinal stenosis, lumbosacral region Is this a current diagnosis for this admission?: Yes Plan: Consult the pain management (8) Type 2 diabetes mellitus Qualifiers: Diabetes mellitus complication status: with unspecified complications Is this a current diagnosis for this admission?: Yes Plan: Continues a sliding scale (9) Dehydration Is this a current diagnosis for this admission?: Yes Plan: Start the patient on IV fluid (10) Cerebrovascular disorder Is this a current diagnosis for this admission?: Yes Plan: Continues aspirin Plavix and statin - Time Time Spent: 30 to 50 Minutes Medications reviewed and adjusted accordingly: Yes Anticipated discharge: SNF Within: Other - Inpatient Certification Medical Necessity: Need Close Monitoring Due to Risk of Patient Decompensation, Need For IV Fluids Post Hospital Care: D/C Nursing Tech Documentation - Plan Summary Plan Summary: Admit the patient on telemetry bed See other MD orders Discussed with the about patient's current conditions
[2018-01-13 14:16] LABS: ABSOLUTE EOSINOPHILS # (AUTO) 0.2 10^3/uL (0.0-0.6); ABSOLUTE LYMPHOCYTES (AUTO) 1.8 10^3/uL (0.5-4.7); ABSOLUTE MONOCYTES (AUTO) 0.7 10^3/uL (0.1-1.4); ABSOLUTE NEUT (AUTO) 5.7 10^3/uL (1.7-8.2); BASOPHILS % (AUTO) 0.4 % (0-2); EOSINOPHILS % (AUTO) 2.3 % (0-6); HEMATOCRIT 44.8 % (37.9-51.0); HEMOGLOBIN 15.4 g/dL (13.5-17.0); MEAN CORPUSCULAR HEMOGLOBIN 31.2 pg (27.0-33.4); MEAN CORPUSCULAR HGB CONC 34.4 g/dL (32.0-36.0); MEAN CORPUSCULAR VOLUME 91 fl (80-97); MONOCYTES % (AUTO) 8.8 % (3-13); PLATELET COUNT 294 10^3/uL (150-450); RED BLOOD COUNT 4.95 10^6/uL (4.35-5.55); RED CELL DISTRIBUTION WIDTH 14.1 % (11.5-14.0); SEGMENTED NEUTROPHILS % (AUTO) 67.5 % (42-78); TOTAL CELLS COUNTED % (AUTO) 100 %; WHITE BLOOD COUNT 8.4 10^3/uL (4.0-10.5)
[2018-01-13 14:53] LABS: ALANINE AMINOTRANSFERASE 19 U/L (21-72); ALBUMIN 4.7 g/dL (3.5-5.0); ALKALINE PHOSPHATASE 84 U/L (38-126); ANION GAP 14 (5-19); ASPARTATE AMINO TRANSFERASE 19 U/L (17-59); BILIRUBIN,DIRECT 0.2 mg/dL (0.0-0.4); BILIRUBIN,TOTAL 0.2 mg/dL (0.2-1.3); BLOOD UREA NITROGEN 14 mg/dL (7-20); CALCIUM 9.9 mg/dL (8.4-10.2); CARBON DIOXIDE 29 mmol/L (22-30); CHLORIDE 97 mmol/L (98-107); GLUCOSE 167 mg/dL (75-110); LIPASE 272.6 U/L (23-300); POTASSIUM 5.1 mmol/L (3.6-5.0); SODIUM 140.3 mmol/L (137-145); TOTAL PROTEIN 6.7 g/dL (6.3-8.2)
[2018-01-13] MEDS ORDERED: ENOXAPARIN SODIUM INJ 40 MG/0.4 ML DISP.SYRIN SUBCUT ONE (15:00)
[2018-01-13 15:07] LABS: FREE T3 3.56 pg/mL (2.77-5.27)
[2018-01-13 15:21] LABS: THYROID STIMULATING HORMONE 3.18 uIU/mL (0.47-4.68)
--- NOTE | 2018-01-13 15:27 | RADIOLOGY REPORT (SQ) ---
EXAM DESCRIPTION: MRI HEAD WITHOUT COMPLETED DATE/TIME: 01/13/2018 3:11 pm REASON FOR STUDY: dizziness/hx cva COMPARISON: CT dated 12/27/2017. TECHNIQUE: Multiplanar imaging includes non-contrasted T1, T2, FLAIR, and diffusion with ADC map seq uences. Images stored on PACS. LIMITATIONS: None. FINDINGS: ANATOMY: No anomalies. Normal vascular flow voids. Pituitary fossa normal. CSF SPACES: Atrophy induced prominence of ventricles and CSF spaces. CEREBRUM: High signal intensity lesions scattered throughout the white matter on FLAIR imaging with d istribution suggesting micro-vascular ischemic changes. Old infarct in the right occipital lobe. No evidence of hemorrhage, mass, or extraaxial fluid collection. POSTERIOR FOSSA: No signal alteration. No hemorrhage. No edema, masses or mass effect. Internal jose tory canals, cerebello-pontine angles, mastoids normal. DIFFUSION IMAGING: Negative for acute or sub-acute infarction. ORBITS: No masses. Globes normal. PARANASAL SINUSES: No fluid levels. Mucosa normal. OTHER: No other significant finding. IMPRESSION: ATROPHY AND CHRONIC MICRO-VASCULAR ISCHEMIC CHANGES. OLD INFARCT IN THE RIGHT OCCIPITAL LOBE. OTHERWISE NORMAL MRI OF THE BRAIN WITHOUT INTRAVENOUS GADOLINIUM CONTRAST. EVIDENCE OF ACUTE STROKE: NO. TECHNICAL DOCUMENTATION: JOB ID: [id number] [employer]- All Rights Reserved Reading location - IP/workstation name: [email or web address]
--- NOTE | 2018-01-13 18:16 | EKG REPORT ---
SEVERITY:- OTHERWISE NORMAL ECG - SINUS RHYTHM VENTRICULAR PREMATURE COMPLEX BORDERLINE LEFT AXIS DEVIATION : Confirmed by: Adis French MD 13-Jan-2018 18:15:27
[2018-01-13] MEDS: LANSOPRAZOLE 30 MG TAB.RAP.DR PO SCH (18:27)
[2018-01-13] MEDS: ASPIRIN/DIPYRIDAMOLE 25-200 MG 1 CAP.SR CPMP.12HR PO SCH (18:28)
--- NOTE | 2018-01-13 18:53 | RADIOLOGY REPORT (SQ) ---
EXAM DESCRIPTION: CT CHEST WITH; CT ABD/PELVIS WITH IV ORAL COMPLETED DATE/TIME: 01/13/2018 6:11 pm REASON FOR STUDY: copd/cough/wt loss; wt loss/abd pain CONTRAST TYPE AND DOSE: contrast/concentration: Isovue 370.00 mg/ml; Total Contrast Delivered: 49.0 ml; Total Saline Delivered: 65.0 ml RENAL FUNCTION: GFR > 60. COMPARISON: 03/10/2017 and 05/05/2016 TECHNIQUE: CT scan of the chest performed using helical scanning technique with dynamic intravenous contrast injection. Images reviewed with lung, soft tissue and bone windows. Reconstructed coronal a nd sagittal MPR images reviewed. All images stored on PACS. All CT scanners at this facility use dose modulation, iterative reconstruction, and/or weight based d osing when appropriate to reduce radiation dose to as low as reasonably achievable (ALARA). [facility]: Dose Right [facility]: CareDose [facility]: Dose Right [facility]: Teradose 4D [facility]: [employer] RADIATION DOSE: CT Rad equipment meets quality standard of care and radiation dose reduction techniq ues were employed. CTDIvol: 4.5 - 4.6 mGy. DLP: 563 mGy-cm.. LIMITATIONS: None. FINDINGS: AXILLAE: No adenopathy. CHEST WALL: No masses. No subcutaneous air. LUNGS: No nodules or masses. No pneumothorax. No infiltrates. PLEURA: No effusions. No calcifications. THYROID: No masses or significant asymmetry. HILAR AND MEDIASTINAL STRUCTURES: No identified masses or abnormal nodes. AORTA AND GREAT VESSELS: No aneurysm. No dissection. PULMONARY ARTERIES: No identified pulmonary emboli. Study not optimized for the pulmonary arteries. HEART: No pericardial effusion. HARDWARE AND LIFELINES: None. BONES: No significant finding. OTHER: No other significant finding. IMPRESSION: No acute findings. COMPARISON: None. RADIATION DOSE: CT Rad equipment meets quality standard of care and radiation dose reduction techniq ues were employed. CTDIvol: 4.5 - 4.6 mGy. DLP: 563 mGy-cm.mGy. TECHNIQUE: CT scan of the abdomen and pelvis performed with intravenous and oral contrast using mita alejandra scanning technique with dynamic intravenous contrast injection. Images reviewed with lung, soft tissue and bone windows. Reconstructed coronal and sagittal MPR images reviewed. Delayed images for evaluation of the urinary system also acquired and evaluated. All images stored on PACS. All CT scanners at this facility use dose modulation, iterative reconstruction, and/or weight based d osing when appropriate to reduce radiation dose to as low as reasonably achievable (ALARA). [facility]: Dose Right [facility]: SureCare [facility]: Dose Right [facility]: Teradose 4D [facility]: [employer] FINDINGS: LIVER: Normal size. No masses. No dilated ducts. SPLEEN: Normal size. No focal lesions. PANCREAS: Diffusely atrophic. No masses identified. No significant calcifications. No adjacent inf lammation or peripancreatic fluid collections. Pancreatic duct not dilated. GALLBLADDER: No identified stones by CT criteria. No inflammatory changes to suggest cholecystitis. ADRENAL GLANDS: No significant masses or asymmetry. RIGHT KIDNEY AND URETER: No solid masses. No significant calcification. No hydronephrosis or hydroure ter. LEFT KIDNEY AND URETER: No solid masses. No significant calcification. No hydronephrosis or hydrouret er. AORTA AND VESSELS: No aneurysm. No dissection. Renal arteries, SMA, celiac without stenosis. RETROPERITONEUM: No retroperitoneal adenopathy, hemorrhage or masses. LARGE AND SMALL BOWEL: No dilatation. No masses. No wall thickening. APPENDIX: Normal. ABDOMINAL WALL: No hernia or masses. PERITONEAL CAVITY: No free air. No free fluid. No peritoneal implants or masses. PELVIS: No mass or free fluid. Normal bladder. BONES: No acute findings. Multiple postsurgical changes in the spine with upper cervical posterior f usion, lower lumbar posterior decompression, and T12 kyphoplasty. OTHER: No other significant finding. IMPRESSION: No acute findings. TECHNICAL DOCUMENTATION: JOB ID: [id number] [place]-72 Quality ID # 436: Final reports with documentation of one or more dose reduction techniques (e.g., Au tomated exposure control, adjustment of the mA and/or kV according to patient size, use of iterative reconstruction technique) 2010 [employer]- All Rights Reserved Reading location - IP/workstation name: [email or web address]
--- NOTE | 2018-01-13 18:53 | RADIOLOGY REPORT (SQ) ---
EXAM DESCRIPTION: CT CHEST WITH; CT ABD/PELVIS WITH IV ORAL COMPLETED DATE/TIME: 01/13/2018 6:11 pm REASON FOR STUDY: copd/cough/wt loss; wt loss/abd pain CONTRAST TYPE AND DOSE: contrast/concentration: Isovue 370.00 mg/ml; Total Contrast Delivered: 49.0 ml; Total Saline Delivered: 65.0 ml RENAL FUNCTION: GFR > 60. COMPARISON: 03/10/2017 and 05/05/2016 TECHNIQUE: CT scan of the chest performed using helical scanning technique with dynamic intravenous contrast injection. Images reviewed with lung, soft tissue and bone windows. Reconstructed coronal a nd sagittal MPR images reviewed. All images stored on PACS. All CT scanners at this facility use dose modulation, iterative reconstruction, and/or weight based d osing when appropriate to reduce radiation dose to as low as reasonably achievable (ALARA). [facility]: Dose Right [facility]: CareDose [facility]: Dose Right [facility]: Teradose 4D [facility]: [employer] RADIATION DOSE: CT Rad equipment meets quality standard of care and radiation dose reduction techniq ues were employed. CTDIvol: 4.5 - 4.6 mGy. DLP: 563 mGy-cm.. LIMITATIONS: None. FINDINGS: AXILLAE: No adenopathy. CHEST WALL: No masses. No subcutaneous air. LUNGS: No nodules or masses. No pneumothorax. No infiltrates. PLEURA: No effusions. No calcifications. THYROID: No masses or significant asymmetry. HILAR AND MEDIASTINAL STRUCTURES: No identified masses or abnormal nodes. AORTA AND GREAT VESSELS: No aneurysm. No dissection. PULMONARY ARTERIES: No identified pulmonary emboli. Study not optimized for the pulmonary arteries. HEART: No pericardial effusion. HARDWARE AND LIFELINES: None. BONES: No significant finding. OTHER: No other significant finding. IMPRESSION: No acute findings. COMPARISON: None. RADIATION DOSE: CT Rad equipment meets quality standard of care and radiation dose reduction techniq ues were employed. CTDIvol: 4.5 - 4.6 mGy. DLP: 563 mGy-cm.mGy. TECHNIQUE: CT scan of the abdomen and pelvis performed with intravenous and oral contrast using mita alejandra scanning technique with dynamic intravenous contrast injection. Images reviewed with lung, soft tissue and bone windows. Reconstructed coronal and sagittal MPR images reviewed. Delayed images for evaluation of the urinary system also acquired and evaluated. All images stored on PACS. All CT scanners at this facility use dose modulation, iterative reconstruction, and/or weight based d osing when appropriate to reduce radiation dose to as low as reasonably achievable (ALARA). [facility]: Dose Right [facility]: SureCare [facility]: Dose Right [facility]: Teradose 4D [facility]: [employer] FINDINGS: LIVER: Normal size. No masses. No dilated ducts. SPLEEN: Normal size. No focal lesions. PANCREAS: Diffusely atrophic. No masses identified. No significant calcifications. No adjacent inf lammation or peripancreatic fluid collections. Pancreatic duct not dilated. GALLBLADDER: No identified stones by CT criteria. No inflammatory changes to suggest cholecystitis. ADRENAL GLANDS: No significant masses or asymmetry. RIGHT KIDNEY AND URETER: No solid masses. No significant calcification. No hydronephrosis or hydroure ter. LEFT KIDNEY AND URETER: No solid masses. No significant calcification. No hydronephrosis or hydrouret er. AORTA AND VESSELS: No aneurysm. No dissection. Renal arteries, SMA, celiac without stenosis. RETROPERITONEUM: No retroperitoneal adenopathy, hemorrhage or masses. LARGE AND SMALL BOWEL: No dilatation. No masses. No wall thickening. APPENDIX: Normal. ABDOMINAL WALL: No hernia or masses. PERITONEAL CAVITY: No free air. No free fluid. No peritoneal implants or masses. PELVIS: No mass or free fluid. Normal bladder. BONES: No acute findings. Multiple postsurgical changes in the spine with upper cervical posterior f usion, lower lumbar posterior decompression, and T12 kyphoplasty. OTHER: No other significant finding. IMPRESSION: No acute findings. TECHNICAL DOCUMENTATION: JOB ID: [id number] [place]-72 Quality ID # 436: Final reports with documentation of one or more dose reduction techniques (e.g., Au tomated exposure control, adjustment of the mA and/or kV according to patient size, use of iterative reconstruction technique) 2010 [employer]- All Rights Reserved Reading location - IP/workstation name: [facility]
[2018-01-13] MEDS ORDERED: HYDROCODONE/ACETAMINOPHEN 10-325 MG TABLET PO PRN (19:07)
--- NOTE | 2018-01-13 20:08 | PDOC CONSULTATION ---
Consultation Consult Date: 01/13/18 Attending physician:: JUAN HENRY Consult reason:: abdominal complaints History of Present Illness Admission Date/PCP: 01/13/18 13:05 TAVARES FAROOQ MD History of Present Illness: I have asked by Dr Farooq to see patient I have seen in the past, had 2 negative EGD along with biopsies negative colonoscopy, all of which done in the past 2 years or so patient went to see Dr Farooq, there have been some non specific complaints blood work was drawn, hgb is normal, k is high patient has normal LFT's also MRI , CT scan of chest ad abdomen are negative patient may have depression I do not believe that he will require repeat endoscopic procedures check CA 19-9 for possible pancreatic issues Past Medical History Cardiac Medical History: Denies: Coronary Artery Disease, Myocardial Infarction, Hypertension - RESOLVED AT THIS TIME Pulmonary Medical History: Reports: Chronic Obstructive Pulmonary Disease (COPD) Denies: Asthma, Bronchitis, Pneumonia Neurological Medical History: Reports: Ischemic CVA Denies: Seizures Endocrine Medical History: Reports: Diabetes Mellitus Type 2 GI Medical History: Reports: Gastroesophageal Reflux Disease Musculoskeltal Medical History: Reports: Arthritis Psychiatric Medical History: Reports: Depression Hematology: Denies: Anemia Past Surgical History Past Surgical History: Reports: Other - lumbar spine and cervical spine Social History Lives with: Family Smoking Status: Current Every Day Smoker Frequency of Alcohol Use: Occasional Hx Recreational Drug Use: No Hx Prescription Drug Abuse: No Family History Family History: Reviewed & Not Pertinent, DM, Hypertension Parental Family History Reviewed: Yes Children Family History Reviewed: Unknown Sibling(s) Family History Reviewed.: Unknown Medication/Allergy Home Medications: Alprazolam [Xanax 0.5 mg Tablet] 0.5 mg PO BIDP PRN 01/13/18 Amlodipine Besylate [Norvasc 5 mg Tablet] 5 mg PO DAILY 01/13/18 Aspirin/Dipyridamole [Aggrenox 25 mg-200 mg Capsule] 1 tab PO BID 01/13/18 Duloxetine HCl [Cymbalta] 30 mg PO DAILY 01/13/18 Escitalopram Oxalate [Lexapro] 20 mg PO DAILY 01/13/18 Glipizide [Glipizide ER] 2.5 mg PO DAILY 01/13/18 Hydrocodone/Acetaminophen [[place] 10-325 mg Tablet] 1 tab PO Q6HP PRN 01/13/18 Insulin Detemir [Levemir Flextouch] 10 units SQ QHS 01/13/18 Ipratropium/Albuterol Sulfate [Combivent Respimat 4 gm Mdi] 1 puff IH BID Losartan Potassium [Cozaar 50 mg Tablet] 50 mg PO DAILY 01/13/18 Metformin HCl [Glucophage 500 mg Tablet] 500 mg PO BID 01/13/18 Pantoprazole Sodium [Protonix] 40 mg PO DAILY 01/13/18 Repaglinide [Prandin] 1 mg PO DAILY@0700,1100 01/13/18 Repaglinide [Prandin] 2 mg PO WSUPPER 01/13/18 Allergies/Adverse Reactions: No Known Allergies Allergy (Verified 04/08/17 14:39) Review of Systems Constitutional: ABSENT: fever(s), headache(s), night sweats, weakness Eyes: ABSENT: visual disturbances Ears: ABSENT: hearing changes Nose, Mouth, and Throat: ABSENT: mouth pain, sore throat Cardiovascular: ABSENT: edema, orthropnea, palpitations Respiratory: ABSENT: dyspnea, hemoptysis Gastrointestinal: PRESENT: constipation, nausea. ABSENT: coffee ground emesis, melena Genitourinary: ABSENT: dysuria, hematuria Musculoskeletal: ABSENT: deformity, joint swelling Integumentary: ABSENT: pruritus Neurological: ABSENT: focal weakness, syncope, tingling, tremor(s), vertigo Endocrine: ABSENT: polydipsia, polyphagia, polyuria Hematologic/Lymphatic: ABSENT: easy bruising Physical Exam Vital Signs: Temp Pulse Resp BP Pulse Ox 98.0 F 72 16 134/62 H 98 01/13/18 15:46 01/13/18 15:46 01/13/18 15:46 01/13/18 15:46 01/13/18 15:46 Intake & Output 01/12/18 01/13/18 01/14/18 06:59 06:59 06:59 Intake Total 600 Balance 600 Weight 48.2 kg General appearance: PRESENT: no acute distress, thin, well-developed Head exam: PRESENT: atraumatic, normocephalic Eye exam: PRESENT: EOMI, PERRLA. ABSENT: nystagmus, periorbital swelling, scleral icterus Mouth exam: PRESENT: moist, neck supple Throat exam: ABSENT: tonsillar exudate, tonsillogmegaly Respiratory exam: PRESENT: unlabored. ABSENT: symmetrical, tachypnea, wheezes Cardiovascular exam: PRESENT: RRR, +S1, +S2 GI/Abdominal exam: PRESENT: soft. ABSENT: rebound, rigid, tenderness Extremities exam: ABSENT: joint swelling Musculoskeletal exam: PRESENT: full ROM Neurological exam: PRESENT: oriented to time, oriented to situation, CN II-XII grossly intact Focused psych exam: ABSENT: restlessness Skin exam: PRESENT: normal color. ABSENT: mottled, pallor, urticaria, vesicles Results Laboratory Results: 01/13/18 13:48 01/13/18 13:48 01/13/18 01/13/18 01/13/18 13:48 13:48 13:48 WBC 8.4 RBC 4.95 Hgb 15.4 Hct 44.8 MCV 91 MCH 31.2 MCHC 34.4 RDW 14.1 H Plt Count 294 Seg Neutrophils % 67.5 Lymphocytes % 21.0 Monocytes % 8.8 Eosinophils % 2.3 Basophils % 0.4 Absolute Neutrophils 5.7 Absolute Lymphocytes 1.8 Absolute Monocytes 0.7 Absolute Eosinophils 0.2 Absolute Basophils 0.0 Sodium 140.3 Potassium 5.1 H Chloride 97 L Carbon Dioxide 29 Anion Gap 14 BUN 14 Creatinine 0.66 Est GFR ( Amer) > 60 Est GFR (Non-Af Amer) > 60 Glucose 167 H Calcium 9.9 Magnesium 1.7 Total Bilirubin 0.2 AST 19 ALT 19 L Alkaline Phosphatase 84 Total Protein 6.7 Albumin 4.7 Lipase 272.6 TSH 3.18 Free T3 pg/mL 3.56 Impressions: Abdomen/Pelvis CT 01/13/18 00:00 IMPRESSION: No acute findings. IMPRESSION: No acute findings. Chest CT 01/13/18 00:00 IMPRESSION: No acute findings. IMPRESSION: No acute findings. Head MRI 01/13/18 00:00 IMPRESSION: ATROPHY AND CHRONIC MICRO-VASCULAR ISCHEMIC CHANGES. OLD INFARCT IN THE RIGHT OCCIPITAL LOBE. OTHERWISE NORMAL MRI OF THE BRAIN WITHOUT INTRAVENOUS GADOLINIUM CONTRAST. EVIDENCE OF ACUTE STROKE: NO. Assessment & Plan - Diagnosis (1) Abdominal pain Qualifiers: Abdominal location: epigastric Qualified Code(s): R10.13 - Epigastric pain Is this a current diagnosis for this admission?: Yes Plan: patent has had EGD and colonoscopy with negative findings some of his symptoms are likely due to the use of pain medications,slow motility this could likely explain his sense of nausea and his constipation no obstructive lesons are noted, biopsies are negative due to poor colonic motility and medication induced gastric slowing has probably caused a poor appetite, lack of eating and subsequent weight loss it is reassuring that the CT scan of his abdomen, chest are negative labs are normal except for hyperkalemia his LFT's are normal, would check for CA 19-9 to exclude a possible pancreatic lesion patient does not need repeat endoscopy and colonoscopy elevated glucose may indicate diabetes and check A1C as well - Time Time Spent: 50 to 70 Minutes
[2018-01-13] MEDS: HYDROCODONE/ACETAMINOPHEN 5-325 MG TABLET PO PRN (21:35)
[2018-01-13] MEDS: INSULIN DETEMIR 100 UNIT/ML 3 ML PEN SUBCUT SCH (21:35)
[2018-01-13] MEDS: INSULIN LISPRO 100 UNIT/ML 3 ML VIAL SUBCUT PRN (21:35)
[2018-01-13] MEDS: ALPRAZOLAM 0.5 MG TABLET PO PRN (21:40)
[2018-01-13] MEDS: LIDOCAINE 5% (700 MG) TRANSDERMAL ADH..PATCH TP SCH (21:41)
[2018-01-14] MEDS: LANSOPRAZOLE 30 MG TAB.RAP.DR PO SCH ×2 (05:40→17:42)
[2018-01-14] MEDS ORDERED: REPAGLINIDE 1 MG PO SCH (07:00)
[2018-01-14] MEDS ORDERED: METFORMIN HCL 500 MG TABLET PO SCH (08:00)
[2018-01-14] MEDS: HYDROCODONE/ACETAMINOPHEN 5-325 MG TABLET PO PRN ×2 (08:54→22:01)
[2018-01-14 09:46] LABS: ANION GAP 12 (5-19); BLOOD UREA NITROGEN 11 mg/dL (7-20); CARBON DIOXIDE 26 mmol/L (22-30); CHLORIDE 101 mmol/L (98-107); GLUCOSE 282 mg/dL (75-110); POTASSIUM 4.4 mmol/L (3.6-5.0); SODIUM 138.8 mmol/L (137-145)
[2018-01-14 09:49] LABS: CALCIUM 9.6 mg/dL (8.4-10.2)
[2018-01-14] MEDS ORDERED: DULOXETINE HCL 30 MG CAPSULE.DR PO SCH (10:00)
[2018-01-14] MEDS: GLIPIZIDE XL 2.5 MG TAB.ER.24 PO SCH (10:28)
[2018-01-14] MEDS: ENOXAPARIN SODIUM INJ 40 MG/0.4 ML DISP.SYRIN SUBCUT SCH (10:28)
[2018-01-14] MEDS: ASPIRIN/DIPYRIDAMOLE 25-200 MG 1 CAP.SR CPMP.12HR PO SCH ×2 (10:28→17:43)
[2018-01-14] MEDS: DULOXETINE HCL 30 MG CAPSULE.DR PO SCH (10:28)
[2018-01-14] MEDS: IPRATROPIUM/ALBUTEROL 120 PUFF/4 GM MDI IH SCH ×2 (10:28→17:44)
[2018-01-14] MEDS: ESCITALOPRAM OXALATE 10 MG TABLET PO SCH (10:47)
[2018-01-14] MEDS: AMLODIPINE BESYLATE 5 MG TABLET PO SCH (10:47)
[2018-01-14] MEDS: LOSARTAN POTASSIUM 50 MG TABLET PO SCH (10:47)
--- NOTE | 2018-01-14 10:58 | PDOC PROGRESS REPORT ---
Subjective Progress Note for:: 01/14/18 Subjective:: Patient is currently doing fair CT of the chest and abdomen and pelvis did not show any acute finding MRI of the head is also no acute finding Patients all blood work is stable Patient still complains of fullness of the stomach's most likely related to the gastroparesis due to the diabetes and the pain medications Patient still very depressed Patient's denied any chest pain denied any shortness of breath IV fluid patient start feeling much better His do not want to go to the rehab Reason For Visit: WEAKNESS,DEHYDRATION,ABDOMINAL PAIN,N/V Physical Exam Vital Signs: Temp Pulse Resp BP Pulse Ox 97.6 F 80 16 96/69 L 97 01/14/18 07:37 01/14/18 07:37 01/14/18 07:37 01/14/18 07:37 01/14/18 07:37 Intake & Output 01/13/18 01/14/18 01/15/18 06:59 06:59 06:59 Intake Total 1100 Output Total 1 Balance 1099 Weight 48.3 kg General appearance: PRESENT: no acute distress, well-developed, well-nourished Head exam: PRESENT: atraumatic, normocephalic Eye exam: PRESENT: conjunctiva pink, EOMI, PERRLA. ABSENT: scleral icterus Ear exam: PRESENT: normal external ear exam Mouth exam: PRESENT: moist, tongue midline Neck exam: PRESENT: full ROM. ABSENT: carotid bruit, JVD, lymphadenopathy, thyromegaly Respiratory exam: PRESENT: clear to auscultation kristin Cardiovascular exam: PRESENT: RRR. ABSENT: diastolic murmur, rubs, systolic murmur Pulses: PRESENT: normal dorsalis pedis pul, +2 pedal pulses bilateral Vascular exam: PRESENT: normal capillary refill GI/Abdominal exam: PRESENT: normal bowel sounds, soft. ABSENT: distended, guarding, mass, organolmegaly, rebound, tenderness Rectal exam: PRESENT: deferred Extremities exam: ABSENT: pedal edema Musculoskeletal exam: PRESENT: ambulatory Neurological exam: PRESENT: alert, awake, oriented to person, oriented to place , oriented to time, oriented to situation, CN II-XII grossly intact. ABSENT: motor sensory deficit Psychiatric exam: PRESENT: appropriate affect, normal mood. ABSENT: homicidal ideation, suicidal ideation Skin exam: PRESENT: dry, intact, warm. ABSENT: cyanosis, rash Results Laboratory Results: 01/13/18 13:48 01/14/18 08:56 01/13/18 01/13/18 01/13/18 13:48 13:48 13:48 WBC 8.4 RBC 4.95 Hgb 15.4 Hct 44.8 MCV 91 MCH 31.2 MCHC 34.4 RDW 14.1 H Plt Count 294 Seg Neutrophils % 67.5 Lymphocytes % 21.0 Monocytes % 8.8 Eosinophils % 2.3 Basophils % 0.4 Absolute Neutrophils 5.7 Absolute Lymphocytes 1.8 Absolute Monocytes 0.7 Absolute Eosinophils 0.2 Absolute Basophils 0.0 Sodium 140.3 Potassium 5.1 H Chloride 97 L Carbon Dioxide 29 Anion Gap 14 BUN 14 Creatinine 0.66 Est GFR ( Amer) > 60 Est GFR (Non-Af Amer) > 60 Glucose 167 H Calcium 9.9 Magnesium 1.7 Total Bilirubin 0.2 AST 19 ALT 19 L Alkaline Phosphatase 84 Total Protein 6.7 Albumin 4.7 Lipase 272.6 TSH 3.18 Free T3 pg/mL 3.56 01/14/18 08:56 WBC RBC Hgb Hct MCV MCH MCHC RDW Plt Count Seg Neutrophils % Lymphocytes % Monocytes % Eosinophils % Basophils % Absolute Neutrophils Absolute Lymphocytes Absolute Monocytes Absolute Eosinophils Absolute Basophils Sodium 138.8 Potassium 4.4 Chloride 101 Carbon Dioxide 26 Anion Gap 12 BUN 11 Creatinine 0.67 Est GFR ( Amer) > 60 Est GFR (Non-Af Amer) > 60 Glucose 282 H Calcium 9.6 Magnesium Total Bilirubin AST ALT Alkaline Phosphatase Total Protein Albumin Lipase TSH Free T3 pg/mL Impressions: Abdomen/Pelvis CT 01/13/18 00:00 IMPRESSION: No acute findings. IMPRESSION: No acute findings. Chest CT 01/13/18 00:00 IMPRESSION: No acute findings. IMPRESSION: No acute findings. Head MRI 01/13/18 00:00 IMPRESSION: ATROPHY AND CHRONIC MICRO-VASCULAR ISCHEMIC CHANGES. OLD INFARCT IN THE RIGHT OCCIPITAL LOBE. OTHERWISE NORMAL MRI OF THE BRAIN WITHOUT INTRAVENOUS GADOLINIUM CONTRAST. EVIDENCE OF ACUTE STROKE: NO. Assessment & Plan - Diagnosis (1) Weight loss Is this a current diagnosis for this admission?: Yes Plan: Not very clear etiology most likely underlying depressions with ongoing gastroparesis (2) Abdominal pain Qualifiers: Abdominal location: epigastric Qualified Code(s): R10.13 - Epigastric pain Is this a current diagnosis for this admission?: Yes Plan: Is likely possible gastritis with some gastroparesis continues to PPI (3) Chronic obstructive pulmonary disease Qualifiers: Emphysema type: unspecified Is this a current diagnosis for this admission?: Yes Plan: Will continues to patients with the nebulizer treatments (4) Dizziness Is this a current diagnosis for this admission?: Yes Plan: We will get the MRI of the head (5) Essential hypertension Is this a current diagnosis for this admission?: Yes Plan: Continues to current medications (6) Nausea Is this a current diagnosis for this admission?: Yes Plan: Most likely due to the gastroparesis with the pain medications (7) Spinal stenosis Qualifiers: Spinal region: lumbosacral Qualified Code(s): M48.07 - Spinal stenosis, lumbosacral region Is this a current diagnosis for this admission?: Yes Plan: Consult the pain management (8) Type 2 diabetes mellitus Qualifiers: Diabetes mellitus complication status: with unspecified complications Is this a current diagnosis for this admission?: Yes Plan: Continues a sliding scale (9) Dehydration Is this a current diagnosis for this admission?: Yes Plan: Start the patient on IV fluid (10) Cerebrovascular disorder Is this a current diagnosis for this admission?: Yes Plan: Continues aspirin Plavix and statin - Time Time Spent with patient: 15-24 minutes Medications reviewed and adjusted accordingly: Yes Anticipated discharge: Other Within: Other - Inpatient Certification Medical Necessity: Need Close Monitoring Due to Risk of Patient Decompensation, Need For IV Fluids Post Hospital Care: 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
[2018-01-14] MEDS: INSULIN LISPRO 100 UNIT/ML 3 ML VIAL SUBCUT PRN ×2 (12:49→22:02)
[2018-01-14] MEDS ORDERED: REPAGLINIDE 2 MG PO SCH (17:00)
--- NOTE | 2018-01-14 17:10 | PSYCHOLOGICAL NOTE ---
Psych Note - Psych Note Psych Note: Reason for consult:Depression ARTURO ROUSSEAU is a 72 year old male with a significant history of type 2 diabetes mellitus hypertension's hyperlipidemia history of the CVA in the past with ongoing depressions and a chronic back issues. Chart review conducted: Medication recommendations per [facility]'s contracted psychiatrist, MD Madison,are as follows: 1. Please discontinue Lexapro 2. Please discontinue Cymbalta 3. Please add Depakote 250 mg twice daily 4. Please add BuSpar 5 mg every morning 5. Please add BuSpar 10 mg nightly Patient evaluation will occur tomorrow morning
[2018-01-14] MEDS: LIDOCAINE 5% (700 MG) TRANSDERMAL ADH..PATCH TP SCH (22:01)
[2018-01-14] MEDS: ALPRAZOLAM 0.5 MG TABLET PO PRN (22:01)
[2018-01-14] MEDS: INSULIN DETEMIR 100 UNIT/ML 3 ML PEN SUBCUT SCH (22:01)
[2018-01-15] MEDS: LANSOPRAZOLE 30 MG TAB.RAP.DR PO SCH (05:10)
[2018-01-15 06:36] LABS: CREATINE KINASE MB 0.49 ng/mL (<4.55)
[2018-01-15 06:38] LABS: TROPONIN I < 0.012 ng/mL
--- NOTE | 2018-01-15 09:01 | EKG REPORT ---
SEVERITY:- ABNORMAL ECG - SINUS RHYTHM VENTRICULAR TRIGEMINY BORDERLINE PROLONGED QT INTERVAL : Confirmed by: Adis French MD 15-Jan-2018 09:01:10
[2018-01-15] MEDS: DULOXETINE HCL 30 MG CAPSULE.DR PO SCH (10:06)
[2018-01-15] MEDS: ASPIRIN/DIPYRIDAMOLE 25-200 MG 1 CAP.SR CPMP.12HR PO SCH (10:06)
[2018-01-15] MEDS: GLIPIZIDE XL 2.5 MG TAB.ER.24 PO SCH (10:06)
[2018-01-15] MEDS: AMLODIPINE BESYLATE 5 MG TABLET PO SCH (10:08)
[2018-01-15] MEDS: IPRATROPIUM/ALBUTEROL 120 PUFF/4 GM MDI IH SCH (10:09)
[2018-01-15] MEDS: LOSARTAN POTASSIUM 50 MG TABLET PO SCH (10:11)
[2018-01-15] MEDS: ENOXAPARIN SODIUM INJ 40 MG/0.4 ML DISP.SYRIN SUBCUT SCH (10:11)
[2018-01-15] MEDS: ESCITALOPRAM OXALATE 10 MG TABLET PO SCH (10:11)
[2018-01-15 12:28] LABS: CREATINE KINASE MB 0.52 ng/mL (<4.55); TROPONIN I < 0.012 ng/mL
--- NOTE | 2018-01-15 12:29 | PDOC DISCHARGE SUMMARY ---
General - Admit/Disc Date/PCP Admission Date/Primary Care Provider: 01/13/18 13:05 TAVARES FAROOQ MD Discharge Date: 01/15/18 - Discharge Diagnosis (1) Weight loss Is this a current diagnosis for this admission?: Yes Summary: Patients all the imaging studies negative (2) Abdominal pain Is this a current diagnosis for this admission?: Yes Summary: Most likely a gastroparesis and underlying gastritis (3) Chronic obstructive pulmonary disease Is this a current diagnosis for this admission?: Yes Summary: continue a Combivent (4) Dizziness Is this a current diagnosis for this admission?: Yes Summary: all resolved (5) Essential hypertension Is this a current diagnosis for this admission?: Yes Summary: Currently all stable (6) Nausea Is this a current diagnosis for this admission?: Yes (7) Spinal stenosis Is this a current diagnosis for this admission?: Yes Summary: Pain management (8) Type 2 diabetes mellitus Is this a current diagnosis for this admission?: Yes Summary: . Levemir and NovoLog with the sliding scale (9) Dehydration Is this a current diagnosis for this admission?: Yes Summary: Currently all resolved (10) Cerebrovascular disorder Is this a current diagnosis for this admission?: Yes Summary: Continue to Aggrenox and statin - Additional Information Discharge Diet: Diabetic Prescriptions: Insulin Aspart [Novolog Flexpen] 0 unit SUBCUT .SLD SCALE #1 pen Home Medications: Alprazolam [Xanax 0.5 mg Tablet] 0.5 mg PO BIDP PRN 01/13/18 Amlodipine Besylate [Norvasc 5 mg Tablet] 5 mg PO DAILY 01/13/18 Aspirin/Dipyridamole [Aggrenox 25 mg-200 mg Capsule] 1 tab PO BID 01/13/18 Duloxetine HCl [Cymbalta] 30 mg PO DAILY 01/13/18 Hydrocodone/Acetaminophen [[place] 10-325 mg Tablet] 1 tab PO Q6HP PRN 01/13/18 Insulin Detemir [Levemir Flextouch] 10 units SQ QHS 01/13/18 Losartan Potassium [Cozaar 50 mg Tablet] 50 mg PO DAILY 01/13/18 Pantoprazole Sodium [Protonix] 40 mg PO DAILY 01/13/18 Insulin Aspart [Novolog Flexpen] 0 unit SUBCUT .SLD SCALE #1 pen 01/15/18 Ipratropium/Albuterol Sulfate [Combivent Respimat 4 gm Mdi] 1 puff IH BID #1 01/30 History of Present Illness History of Present Illness: ARTURO ROUSSEAU is a 72 year old male This is a 72-year-old male's with a significant history of type 2 diabetes mellitus hypertension's hyperlipidemia history of the CVA in the past with ongoing depressions and a chronic back issuesHave a several workup done including the CT of the chest abdomen and pelvis last year was all stable also have a CT of the head recently was done was stable and endoscopy and colonoscopy was done last year was all stable blood work and PSA was done stableAnd a several consult visit including the pain management and seen by the ENT last yr r but patient still persistent Feeling weak and increasing the more pain and the patient not feeling well and persistent nausea and unable to eat or drink and a significant weight loss more than 20 pounds in the last 2 monthsAnd at this point decided to admit in the hospital for further evaluations while the patient unable to have a much mobility to rule out the other etiology Discussed with the pain management and agree with this continues pain medications Ongoing hernia problem seen by the surgeon and the patient's at this point does not require surgery but patients really insistent need a surgery Patient's denied any chest pain denied any shortness of the breathStill ongoing cough with ongoing smoking Patient's also ultrasound of the carotid recently done was all stable and ultrasound of the thyroid was done was all stable to According to the since last 3 days patient is unable to move from He is bed and and not feeling well and not able to eat much Hospital Course Hospital Course: This 72-year-old male admitting in the hospital due to the above conditions and patient underwent for the MRI of the head was negative for any acute finding and CT of the chest abdomen and pelvis was done which all negative for any acute finding Since seen by the Dr. Medel and have a recently all endoscopy and colonoscopy was done was all stable and suggest most likely gastroparesis Patient was given IV fluid which is also stable dehydration's Physical therapy and pain management evaluate the patient and suggest a follow outpatient Otherwise doing well and discharged home with the stable conditions and follow outpatients GI for gastroparesis and continues formal physical therapy and pain management and fall precautions Discussed with the patient and the regarding the patient's current conditions Also a depression issue and the patient's claim that the psychiatrist did not talk to patients but suggests some change in the medications but I think, will discontinue the Lexapro and follow outpatient psych for further evaluations Physical Exam Vital Signs: Temp Pulse Resp BP Pulse Ox 97.9 F 75 20 133/61 H 100 01/15/18 07:28 01/15/18 07:28 01/15/18 07:28 01/15/18 07:28 01/15/18 07:28 Intake & Output 01/14/18 01/15/18 01/16/18 06:59 06:59 06:59 Intake Total 1100 2629 Output Total 1 Balance 1099 2629 Weight 48.3 kg 47.5 kg General appearance: PRESENT: no acute distress, well-developed, well-nourished Head exam: PRESENT: atraumatic, normocephalic Eye exam: PRESENT: conjunctiva pink, EOMI, PERRLA. ABSENT: scleral icterus Ear exam: PRESENT: normal external ear exam Mouth exam: PRESENT: moist, tongue midline Neck exam: PRESENT: full ROM. ABSENT: carotid bruit, JVD, lymphadenopathy, thyromegaly Respiratory exam: PRESENT: clear to auscultation kristin Cardiovascular exam: PRESENT: RRR. ABSENT: diastolic murmur, rubs, systolic murmur Pulses: PRESENT: normal dorsalis pedis pul, +2 pedal pulses bilateral Vascular exam: PRESENT: normal capillary refill GI/Abdominal exam: PRESENT: normal bowel sounds, soft. ABSENT: distended, guarding, mass, organolmegaly, rebound, tenderness Rectal exam: PRESENT: deferred Extremities exam: ABSENT: pedal edema Musculoskeletal exam: PRESENT: ambulatory Neurological exam: PRESENT: alert, awake, oriented to person, oriented to place , oriented to time, oriented to situation, CN II-XII grossly intact. ABSENT: motor sensory deficit Psychiatric exam: PRESENT: appropriate affect, normal mood. ABSENT: homicidal ideation, suicidal ideation Skin exam: PRESENT: dry, intact, warm. ABSENT: cyanosis, rash Results Laboratory Results: 01/13/18 13:48 01/14/18 08:56 01/13/18 16:10 Clean Catch Midstream Urine Culture - Final NO GROWTH 2 DAYS 01/15/18 01/15/18 01/15/18 05:30 05:30 11:32 Creatine Kinase 37 L 41 L CK-MB (CK-2) 0.49 Troponin I < 0.012 Impressions: Abdomen/Pelvis CT 01/13/18 00:00 IMPRESSION: No acute findings. IMPRESSION: No acute findings. Chest CT 01/13/18 00:00 IMPRESSION: No acute findings. IMPRESSION: No acute findings. Head MRI 01/13/18 00:00 IMPRESSION: ATROPHY AND CHRONIC MICRO-VASCULAR ISCHEMIC CHANGES. OLD INFARCT IN THE RIGHT OCCIPITAL LOBE. OTHERWISE NORMAL MRI OF THE BRAIN WITHOUT INTRAVENOUS GADOLINIUM CONTRAST. EVIDENCE OF ACUTE STROKE: NO. Qualifiers - * PATEINT BEING DISCHARGED WITH ANY OF THE FOLLOWING DIAGNOSIS?: No VTE patient discharged on overlapping Therapy?: Yes Plan Time Spent: Greater than 30 Minutes - Continues to current medications as above
[2018-01-15 13:02] VITALS: BP 130/66
[2018-01-15] MEDS: INSULIN LISPRO 100 UNIT/ML 3 ML VIAL SUBCUT PRN (13:12)
[2018-01-17 16:39] LABS: A/G RATIO 1.2 (0.7-1.7); ALBUMIN 2 3.4 g/dL (2.9-4.4); BETA GLOBULINS 0.9 g/dL (0.7-1.3); FREE KAPPA LIGHT CHAINS 9.6 mg/L (3.3-19.4); GAMMA GLOBULIN 0.6 g/dL (0.4-1.8); GLOBULIN TOTAL 2.8 g/dL (2.2-3.9); MONOCLONAL SPIKE Not Observed g/dL (Not Observed); PROTEIN TOTAL SERUM 6.2 g/dL (6.0-8.5)
[2018-01-18 07:08] LABS: KAPPA LAMBDA RATIO 0.87 (0.26-1.65)
[2018-01-18 14:40] LABS: IMMUNOGLOBULIN A 153 mg/dL (61-437); IMMUNOGLOBULIN G 533 mg/dL (700-1600)
[2018-01-18 14:48] LABS: IMMUNOGLOBULIN M 56 mg/dL (15-143)
[2018-01-18 16:39] LABS: ALBUMIN UR 15.3 % (.); ALPHA-1-GLOBULIN URINE 2.6 % (.); ALPHA-2-GLOBULIN URINE 7.8 % (.); GAMMA GLOBULIN URINE 26.6 % (.); M-SPIKE % UR Not Observed % (Not Observed); PROTEIN TOTAL URINE 15.9 mg/dL (Not Estab.)
== END 2018-01-15 13:55 | disposition home health service (06) ==
LOC: 3S 13:05 → INTOOBSV 13:05
PROVIDERS: ADMIT Family Medicine; ATTEND Family Medicine
DX: R63.4 Abnormal weight loss (principal); Z68.1 Body mass index [BMI] 19.9 or less, adult; R10.13 Epigastric pain; J44.9 Chronic obstructive pulmonary disease, unspecified; R42 Dizziness and giddiness; I10 Essential (primary) hypertension; R11.0 Nausea; M48.07 Spinal stenosis, lumbosacral region; E11.8 Type 2 diabetes mellitus with unspecified complications; E86.0 Dehydration; I67.9 Cerebrovascular disease, unspecified; F32.9 Major depressive disorder, single episode, unspecified; F17.200 Nicotine dependence, unspecified, uncomplicated; K59.00 Constipation, unspecified; E87.5 Hyperkalemia; R05 Cough; R14.0 Abdominal distension (gaseous); Z86.73 Personal history of transient ischemic attack (TIA), and cerebral infarction without residual deficits; Z98.890 Other specified postprocedural states; Z82.49 Family history of ischemic heart disease and other diseases of the circulatory system; Z79.4 Long term (current) use of insulin
CPT/HCPCS: 36415 ×3; 87040; 87086; 82553; 82962 ×3; 82550; 83690; 83735; 84165; 84443; 85025; 80048; 80053; 84484; 84481; 82784 ×3; 84166; 82533; 83883; 70551; 71260; 74177; 93005 ×2; 93010 ×2; 97110; 97163; A9270 ×19; J1650 ×2; J7030; G8978; G8979; G8980; J1815; J3490

== ENCOUNTER 2018-02-19 18:25 | Emergency (ER) | payer MEDICARE, BC ==
--- NOTE | 2018-02-19 18:34 | ER Document Report ---
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 Has been having pain in the right upper quadrant. States that his stools are white and dark at times. Decided to come in today because he could not keep anything down and was feeling more pain in the right upper quadrant with dehydration. Denies any other major problems other than some hypertension in the past. Patient thinks that he has pancreatitis or cholecystitis. TRAVEL OUTSIDE OF THE [place] IN LAST 30 DAYS: No COUNTRY TRAVELED TO/FROM: marisela - [facility] Onset: Last week Onset/Duration: Gradual, Worse Associated symptoms: Nausea, Vomiting. denies: Chills, Productive cough Exacerbated by: Food Relieved by: Remaining still Similar symptoms previously: Yes Recently seen / treated by doctor: Yes - Dr. Chris CT scan which was unremarkable according to patient - Related Data Allergies/Adverse Reactions: No Known Allergies Allergy (Verified 04/08/17 14:39) Past Medical History - General Information source: Patient - Social History Smoking Status: Former Smoker Frequency of alcohol use: None Drug Abuse: None Lives with: Spouse/Significant other Family History: Reviewed & Not Pertinent, DM, Hypertension - Past Medical History Cardiac Medical History: Denies: Hx Coronary Artery Disease, Hx Heart Attack, Hx Hypertension - RESOLVED AT THIS TIME Pulmonary Medical History: Reports: Hx COPD Denies: Hx Asthma, Hx Bronchitis, Hx Pneumonia Neurological Medical History: Denies: Hx Cerebrovascular Accident, Hx Seizures Endocrine Medical History: Reports: Hx Diabetes Mellitus Type 2 GI Medical History: Reports: Hx Gastroesophageal Reflux Disease Musculoskeltal Medical History: Reports Hx Arthritis Psychiatric Medical History: Reports: Hx Depression Past Surgical History: Reports: Other - lumbar spine and cervical spine - Immunizations Hx Diphtheria, Pertussis, Tetanus Vaccination: No Hx Pneumococcal Vaccination: 11/15/07 Review of Systems - Review of Systems Constitutional: Malaise, Weakness. denies: Fever EENT: denies: Ear pain, Difficulty swallowing, Mouth pain, Mouth swelling Cardiovascular: denies: Chest pain, Palpitations, Heart racing Gastrointestinal: Abdominal pain, Nausea, Vomiting. denies: Diarrhea Genitourinary: denies: Burning, Dysuria, Discharge Musculoskeletal: denies: Back pain, Gout, Joint pain Skin: denies: Dryness, Lesions, Lumps, Rash Physical Exam - Vital signs Vitals: Resp 17 02/19/18 18:39 Interpretation: Normal - Notes Notes: Very ill-appearing. Scleral icterus - General General appearance: Appears well, Lethargic In distress: Moderate - HEENT Head: Normocephalic, Atraumatic Eyes: Normal Conjunctiva: Icteric Pupils: PERRL Mucous membranes: Dry - Respiratory Respiratory status: No respiratory distress Chest status: Nontender Breath sounds: Normal Chest palpation: Normal - Cardiovascular Rhythm: Regular Heart sounds: Normal auscultation Murmur: No - Abdominal Inspection: Normal Distension: No distension Bowel sounds: Normal Tenderness: Tender - Right upper quadrant/epigastric Organomegaly: No organomegaly - Back Back: Normal, Nontender - Extremities General upper extremity: Normal inspection, Nontender, Normal color, Normal ROM , Normal temperature General lower extremity: Normal inspection, Nontender, Normal color, Normal ROM , Normal temperature, Normal weight bearing. No: Bjorn's sign - Neurological Neuro grossly intact: Yes Cognition: Normal Orientation: AAOx4 Murdock Coma Scale Eye Opening: Spontaneous Murdock Coma Scale Verbal: Oriented Kranthi Coma Scale Motor: Obeys Commands Kranthi Coma Scale Total: 15 Speech: Normal Motor strength normal: LUE, RUE, LLE, RLE Sensory: Normal - Psychological Associated symptoms: Normal affect, Normal mood - Skin Skin Temperature: Warm Skin Moisture: Dry Skin Color: Normal Course - Re-evaluation Re-evalutation: 02/19/18 21:12 Patient has right upper quadrant pain. Ultrasound ordered. Unable to visualize gallbladder but does have fatty infiltration of the liver. Patient has transaminitis with significant elevated bilirubin at 4.8. Patient has an obstructive process by definition. Had a recent CT scan which was unremarkable. No need at this time in my mind to reorder a CT scan as patient needs to be seen by legal arbitrator for an ERCP versus MRCP. This is unavailable at our facility. Will attempt to transfer at this time. Giving IV hydration and pain control at this time. 02/19/18 21:45 [facility] Harris however no bed is available. Continuing to try and locate accepting facility. 02/19/18 22:00 I have contacted [facility]. No GI available this weekend. No ERCP available there. Will contact [facility] in [place] 02/19/18 22:26 [employer] is available for consult in [place] Dr. Kruse request having patient admitted to medicine service. Waiting for acceptance at this time. 02/19/18 22:37 Patient has been accepted for general medicine bed at [facility],Dr. Nino. No immediate bed available. 02/19/18 22:41 [facility] has bed available. Dr. Dejesus is accepting. Anticipate transfer when bed and transport is available. 02/19/18 23:08 - Vital Signs Vital signs: Temp Pulse Resp BP Pulse Ox 97.9 F 79 17 158/70 H 92 02/19/18 18:52 02/19/18 18:52 02/19/18 22:00 02/19/18 19:02 02/19/18 22:00 - Laboratory Result Diagrams: 02/19/18 18:02 02/19/18 18:02 Laboratory results interpreted by me: 02/19/18 02/19/18 02/19/18 18:02 18:02 20:30 RDW 15.3 H Seg Neutrophils % 82.4 H Lymphocytes % 8.8 L Sodium 135.8 L Glucose 256 H Total Bilirubin 4.8 H Direct Bilirubin 3.3 H AST 156 H ALT 212 H Alkaline Phosphatase 421 H Urine Glucose (UA) 150 H Urine Ketones TRACE H - EKG Interpretation by Ak EKG shows normal: Sinus rhythm, [place], Intervals, QRS Complexes, ST-T Waves Rhythm: PVC's Discharge - Discharge Clinical Impression: Acute hepatitis, Biliary obstruction Referrals: TAVARES CHRIS MD [Primary Care Provider] - Follow up as needed
[2018-02-19] MEDS ORDERED: NORMAL SALINE 1000 ML 1,000 ML IV ONE ×2 (18:46→21:50)
[2018-02-19] MEDS ORDERED: ONDANSETRON HCL INJ/PF 4 MG/2 ML SDV IV PRN (18:47)
[2018-02-19 18:52] LABS: ABSOLUTE EOSINOPHILS # (AUTO) 0.1 10^3/uL (0.0-0.6); ABSOLUTE LYMPHOCYTES (AUTO) 0.8 10^3/uL (0.5-4.7); ABSOLUTE MONOCYTES (AUTO) 0.6 10^3/uL (0.1-1.4); ABSOLUTE NEUT (AUTO) 7.2 10^3/uL (1.7-8.2); BASOPHILS % (AUTO) 0.4 % (0-2); EOSINOPHILS % (AUTO) 1.3 % (0-6); HEMATOCRIT 47.7 % (37.9-51.0); HEMOGLOBIN 16.2 g/dL (13.5-17.0); LYMPHOCYTES % (AUTO) 8.8 % (13-45); MEAN CORPUSCULAR HEMOGLOBIN 31.7 pg (27.0-33.4); MEAN CORPUSCULAR HGB CONC 33.9 g/dL (32.0-36.0); MEAN CORPUSCULAR VOLUME 93 fl (80-97); MONOCYTES % (AUTO) 7.1 % (3-13); PLATELET COUNT 285 10^3/uL (150-450); RED BLOOD COUNT 5.11 10^6/uL (4.35-5.55); RED CELL DISTRIBUTION WIDTH 15.3 % (11.5-14.0); SEGMENTED NEUTROPHILS % (AUTO) 82.4 % (42-78); TOTAL CELLS COUNTED % (AUTO) 100 %; WHITE BLOOD COUNT 8.7 10^3/uL (4.0-10.5)
[2018-02-19] MEDS: FENTANYL CITRATE INJ/PF 100 MCG/2 ML AMPUL IV PRN ×2 (18:55→21:28)
[2018-02-19 19:08] LABS: ALANINE AMINOTRANSFERASE 212 U/L (21-72); ALBUMIN 4.2 g/dL (3.5-5.0); ALKALINE PHOSPHATASE 421 U/L (38-126); ANION GAP 11 (5-19); ASPARTATE AMINO TRANSFERASE 156 U/L (17-59); BILIRUBIN,DIRECT 3.3 mg/dL (0.0-0.4); BILIRUBIN,TOTAL 4.8 mg/dL (0.2-1.3); BLOOD UREA NITROGEN 8 mg/dL (7-20); CALCIUM 9.3 mg/dL (8.4-10.2); CARBON DIOXIDE 27 mmol/L (22-30); CHLORIDE 98 mmol/L (98-107); GLUCOSE 256 mg/dL (75-110); LIPASE 34.1 U/L (23-300); POTASSIUM 4.9 mmol/L (3.6-5.0); SODIUM 135.8 mmol/L (137-145); TOTAL PROTEIN 6.3 g/dL (6.3-8.2)
--- NOTE | 2018-02-19 20:13 | RADIOLOGY REPORT (SQ) ---
EXAM DESCRIPTION: U/S ABDOMEN LTD W/DOPPLER COMPLETED DATE/TIME: 02/19/2018 7:51 pm REASON FOR STUDY: ruq pain COMPARISON: None. TECHNIQUE: Dynamic and static grayscale images acquired of the right upper quadrant and recorded on PACS. Additional selected color Doppler and spectral images recorded. LIMITATIONS: Study limited due to acoustical interference from fat or from air in the bowel. FINDINGS: PANCREAS: Obscured. LIVER: Echotexture is coarse with mild increased echogenicity consistent with fatty infiltration. No masses. LIVER VASCULATURE: Normal directional flow of the main portal vein and hepatic veins. GALLBLADDER: Not visualized. ULTRASOUND-DETECTED MAN'S SIGN: Negative. INTRAHEPATIC DUCTS AND COMMON DUCT: CBD and intrahepatic ducts normal caliber. No filling defects. INFERIOR VENA CAVA: Normal flow. AORTA: Obscured. RIGHT KIDNEY: Normal size. Normal echogenicity. No solid or suspicious masses. No hydronephrosis. No calcifications. PERITONEAL CAVITY AND RIGHT PLEURAL SPACE: No ascites or effusions. OTHER: No other significant finding. IMPRESSION: LIMITED STUDY. MILD FATTY INFILTRATION OF THE LIVER. GALLBLADDER NOT VISUALIZED. TECHNICAL DOCUMENTATION: JOB ID: [id number] [employer]- All Rights Reserved Reading location - IP/workstation name: [email or web address]
[2018-02-19 20:50] LABS: APPEARANCE,URINE CLEAR; BILIRUBIN,URINE NEGATIVE (NEGATIVE); GLUCOSE, URINE 150 mg/dL (NEGATIVE); KETONES,URINE TRACE mg/dL (NEGATIVE); LEUKOCYTE ESTERASE,URINE NEGATIVE (NEGATIVE); NITRITE,URINE NEGATIVE (NEGATIVE); PROTEIN,URINE NEGATIVE (NEGATIVE); URINE SPECIFIC GRAVITY 1.006; UROBILINOGEN,URINE NEGATIVE mg/dL (<2.0)
[2018-02-19 20:53] LABS: COLOR,URINE YELLOW
[2018-02-19] MEDS ORDERED: HYDROMORPHONE HCL INJ/PF 2 MG/ML AMPULE IV ONE (21:03)
[2018-02-20] MEDS ORDERED: ONDANSETRON HCL INJ/PF 4 MG/2 ML SDV IV PRN (00:41)
[2018-02-20] MEDS: FENTANYL CITRATE INJ/PF 100 MCG/2 ML AMPUL IV PRN ×2 (00:42→03:20)
[2018-02-20] MEDS ORDERED: FAMOTIDINE INJ/PF 20 MG/2 ML SDV IV ONE (00:42)
[2018-02-20] MEDS: HYDROMORPHONE HCL INJ/PF 2 MG/ML AMPULE IV PRN ×2 (00:51→03:20)
[2018-02-20 03:56] VITALS: BP 104/48
--- NOTE | 2018-02-20 09:58 | EKG REPORT ---
SEVERITY:- ABNORMAL ECG - SINUS RHYTHM MULTIPLE VENTRICULAR PREMATURE COMPLEXES PROBABLE LEFT ATRIAL ABNORMALITY BORDERLINE PROLONGED QT INTERVAL : Confirmed by: Iva Frey 20-Feb-2018 09:57:21
== END 2018-02-20 04:26 | disposition short-term general hospital (02) ==
LOC: ER 18:25
DX: B17.9 Acute viral hepatitis, unspecified (principal); K83.1 Obstruction of bile duct; R11.2 Nausea with vomiting, unspecified; R10.11 Right upper quadrant pain; R10.13 Epigastric pain; Z87.891 Personal history of nicotine dependence; J44.9 Chronic obstructive pulmonary disease, unspecified; E11.9 Type 2 diabetes mellitus without complications
CPT/HCPCS: 93005; 96376; 99285; 96361; 96374; 96375; 36415; 83690; 85025; 80053; 81001; 84484; 76705; 93976; 93010; J3010 ×2; J1170 ×2; J2405 ×2; J7030; S0028